=== PATIENT | male | born 1935 | race Caucasian/White ===

== ENCOUNTER 2018-04-19 07:12 | Inpatient (IN) | payer MEDICARE, OTHER ==
[2018-04-19] MEDS: NS 500 ML IV (07:45)
[2018-04-19 07:54] LABS: BASO % 0.3 % (0.0-1.0); EOS # 0.1 10^3/uL (0.0-0.50); EOS % 0.9 % (0.0-3.0); HEMATOCRIT 40.9 % (42.0-52.0); HEMOGLOBIN 14.2 g/dl (13.5-17.5); IMMATURE GRANULOCYTE % 0.6 % (0-3.0); LYMPH % 9.2 % (24.0-44.0); MEAN CORPUSCULAR HEMOGLOBIN 30.4 pg (27.0-33.0); MEAN CORPUSCULAR HGB CONC 34.7 g/dl (32.0-36.5); MEAN CORPUSCULAR VOLUME 87.6 fl (80.0-96.0); MONO % 9.6 % (0.0-5.0); NEUTROPHILS # 8.4 10^3/uL (1.8-7.7); NEUTROPHILS % 79.4 % (36.0-66.0); PLATELET COUNT, AUTOMATED 141 10^3/uL (150-450); RED BLOOD COUNT 4.67 10^6/uL (4.30-6.10); RED CELL DISTRIBUTION WIDTH 12.8 % (11.5-14.5); VENOUS BASE EXCESS -1.4 (-2.0-2.0); VENOUS HCO3 25.4 MEQ/L (23.0-27.0); VENOUS O2 SATURATION 69.9 % (60.0-80.0); VENOUS PARTIAL PRESSURE CO2 50.4 mmHg (38.0-50.0); VENOUS PARTIAL PRESSURE O2 37.7 mmHg (30.0-50.0); VENOUS STANDARD HCO3 22.7 MEQ/L; VENOUS TOTAL CO2 26.9 MEQ/L (24.0-28.0); WHITE BLOOD COUNT 10.6 10^3/uL (4.0-10.0)
[2018-04-19 07:56] LABS: INR 1.01; PROTHROMBIN TIME 13.4 SECONDS (12.4-14.5)
[2018-04-19 08:23] LABS: LACTIC ACID SEPSIS PROTOCOL 1.7 MMOL/L (0.4-2.0)
[2018-04-19 08:26] LABS: ALBUMIN 2.6 GM/DL (3.2-5.2); ALKALINE PHOSPHATASE 132 U/L (45-117); ALT/SGPT 43 U/L (12-78); ANION GAP 13 MEQ/L (8-16); AST/SGOT 38 U/L (7-37); BILIRUBIN,DIRECT 0.4 MG/DL (0.0-0.2); BILIRUBIN,TOTAL 0.9 MG/DL (0.2-1.0); BLOOD UREA NITROGEN 19 MG/DL (7-18); CALCIUM LEVEL 7.9 MG/DL (8.8-10.2); CARBON DIOXIDE LEVEL 23 MEQ/L (21-32); CHLORIDE LEVEL 107 MEQ/L (98-107); CPK CREATINE PHOSPHOKINASE 35 U/L (39-308); CREATININE FOR GFR 1.27 MG/DL (0.70-1.30); GLOMERULAR FILTRATION RATE 57.7 (>35); GLUCOSE, FASTING 136 MG/DL (70-100); POTASSIUM SERUM 4.1 MEQ/L (3.5-5.1); SODIUM LEVEL 143 MEQ/L (136-145); TOTAL PROTEIN 6.3 GM/DL (6.4-8.2); TROPONIN I 0.05 NG/ML (< 0.10)
[2018-04-19] MEDS: MOXIFLOXACIN HCL 400 MG in APPROPRIATE DILUENT 1 EA IV (08:27)
[2018-04-19 08:28] LABS: INFLUENZA A AMPLIFICATION NEGATIVE (NEGATIVE); INFLUENZA B AMPLIFICATION NEGATIVE (NEGATIVE)
[2018-04-19 08:31] LABS: CK-MB VALUE MASS < 1.0 NG/ML (<3.6); MB/CK RELATIVE INDEX 2.85 (< OR =4); NT-PRO BNP 3849 PG/ML (<450); THYROID STIMULATING HORMONE 0.885 uIU/ML (0.358-3.740)
[2018-04-19] MEDS ORDERED: ENOXAPARIN 40 MG/0.4 ML SYRINGE (J1650) SC (09:00)
[2018-04-19] MEDS ORDERED: BISACODYL 5 MG TAB PO (10:30)
[2018-04-19] MEDS ORDERED: ISOVUE-370 76% 100ML VIAL (Q9967) As Ordered (10:44)
[2018-04-19 11:17] LABS: D-DIMER QUANT > 4000.0 ng/ml (<500)
[2018-04-19] MEDS: OMEPRAZOLE 20 MG CAP PO (11:34)
[2018-04-19] MEDS: amLODIPine 5 MG TAB PO (11:34)
[2018-04-19] MEDS: LevoFLOXacin IV 750 MG in APPROPRIATE DILUENT 1 EA IV (11:34)
[2018-04-19] MEDS: ASPIRIN 81 MG ENTERIC TAB PO (11:34)
[2018-04-19] MEDS: HEPARIN SOD (PORCINE) 5000 UNITS/ML VIAL IV ×2 (11:57→18:56)
[2018-04-19] MEDS: HEPARIN DRIP 25,000 UNITS in APPROPRIATE DILUENT 1 EA IV (12:00)
[2018-04-19 12:40] LABS: ABG BASE EXCESS -1.9 (-2.0-2.0); ABG HCO3 21.1 MEQ/L (22.0-26.0); ABG PARTIAL PRESSURE CO2 31.2 mmHg (35.0-45.0); ABG PARTIAL PRESSURE O2 83.9 mmHg (75.0-100.0); ABG STANDARD HCO3 22.9 MEQ/L (22.0-26.0); ABG pH (ARTERIAL) 7.447 UNITS (7.350-7.450)
[2018-04-19] MEDS: BUDESONIDE 180MCG INHALER (PULMICORT FLEXHALER) INH ×2 (13:25→21:50)
[2018-04-19 13:49] LABS: ERYTHROCYTE SEDIMENTATION RATE 44 mm/hr (0-20)
[2018-04-19] MEDS: MONTELUKAST 10 MG TAB PO (14:56)
[2018-04-19] MEDS: IRBESARTAN 150 MG TAB PO (14:56)
[2018-04-19 15:47] LABS: CK-MB VALUE MASS 1.7 NG/ML (<3.6); CPK CREATINE PHOSPHOKINASE 31 U/L (39-308); MB/CK RELATIVE INDEX 5.48 (< OR =4)
[2018-04-19 18:28] LABS: PARTIAL THROMBOPLASTIN TIME 51.3 SECONDS (26.8-37.9)
[2018-04-19 18:43] LABS: CPK CREATINE PHOSPHOKINASE 32 U/L (39-308); MB/CK RELATIVE INDEX 6.25 (< OR =4); TROPONIN I 0.45 NG/ML (< 0.10)
[2018-04-19] MEDS: ACETAMINOPHEN TAB 650MG DOSE (2X325MG) PO (20:00)
[2018-04-20 01:28] LABS: PARTIAL THROMBOPLASTIN TIME 95.3 SECONDS (26.8-37.9)
[2018-04-20 05:00] LABS: HEMATOCRIT 35.8 % (42.0-52.0); HEMOGLOBIN 12.3 g/dl (13.5-17.5); MEAN CORPUSCULAR HEMOGLOBIN 29.9 pg (27.0-33.0); MEAN CORPUSCULAR HGB CONC 34.4 g/dl (32.0-36.5); MEAN CORPUSCULAR VOLUME 87.1 fl (80.0-96.0); PLATELET COUNT, AUTOMATED 135 10^3/uL (150-450); RED BLOOD COUNT 4.11 10^6/uL (4.30-6.10); WHITE BLOOD COUNT 7.1 10^3/uL (4.0-10.0)
[2018-04-20 05:09] LABS: ANION GAP 8 MEQ/L (8-16); BLOOD UREA NITROGEN 26 MG/DL (7-18); CALCIUM LEVEL 8.1 MG/DL (8.8-10.2); CARBON DIOXIDE LEVEL 25 MEQ/L (21-32); CHLORIDE LEVEL 109 MEQ/L (98-107); CREATININE FOR GFR 1.46 MG/DL (0.70-1.30); GLOMERULAR FILTRATION RATE 49.1 (>35); GLUCOSE, FASTING 115 MG/DL (70-100); POTASSIUM SERUM 3.9 MEQ/L (3.5-5.1); SODIUM LEVEL 142 MEQ/L (136-145)
[2018-04-20] MEDS: HEPARIN DRIP 25,000 UNITS in APPROPRIATE DILUENT 1 EA IV (06:45)
[2018-04-20 07:24] LABS: PARTIAL THROMBOPLASTIN TIME 82.8 SECONDS (26.8-37.9)
[2018-04-20] MEDS: NS 1,000 ML IV ×2 (07:36→18:34)
[2018-04-20] MEDS: OMEPRAZOLE 20 MG CAP PO (09:15)
[2018-04-20] MEDS: IRBESARTAN 150 MG TAB PO (09:15)
[2018-04-20] MEDS: MONTELUKAST 10 MG TAB PO (09:15)
[2018-04-20] MEDS: amLODIPine 5 MG TAB PO (09:16)
[2018-04-20] MEDS: BUDESONIDE 180MCG INHALER (PULMICORT FLEXHALER) INH ×2 (09:18→20:01)
[2018-04-21] MEDS: HEPARIN DRIP 25,000 UNITS in APPROPRIATE DILUENT 1 EA IV ×2 (00:25→18:16)
[2018-04-21 04:31] LABS: HEMATOCRIT 36.7 % (42.0-52.0); HEMOGLOBIN 12.4 g/dl (13.5-17.5); MEAN CORPUSCULAR HEMOGLOBIN 29.8 pg (27.0-33.0); MEAN CORPUSCULAR HGB CONC 33.8 g/dl (32.0-36.5); MEAN CORPUSCULAR VOLUME 88.2 fl (80.0-96.0); PLATELET COUNT, AUTOMATED 157 10^3/uL (150-450); RED BLOOD COUNT 4.16 10^6/uL (4.30-6.10); WHITE BLOOD COUNT 5.5 10^3/uL (4.0-10.0)
[2018-04-21 04:39] LABS: PARTIAL THROMBOPLASTIN TIME 63.4 SECONDS (26.8-37.9)
[2018-04-21 04:53] LABS: ANION GAP 9 MEQ/L (8-16); BLOOD UREA NITROGEN 25 MG/DL (7-18); CALCIUM LEVEL 7.7 MG/DL (8.8-10.2); CARBON DIOXIDE LEVEL 25 MEQ/L (21-32); CHLORIDE LEVEL 110 MEQ/L (98-107); CREATININE FOR GFR 1.42 MG/DL (0.70-1.30); GLOMERULAR FILTRATION RATE 50.7 (>35); GLUCOSE, FASTING 141 MG/DL (70-100); MAGNESIUM LEVEL 1.9 MG/DL (1.8-2.4); POTASSIUM SERUM 3.8 MEQ/L (3.5-5.1); SODIUM LEVEL 144 MEQ/L (136-145)
[2018-04-21] MEDS: HEPARIN SOD (PORCINE) 5000 UNITS/ML VIAL IV (05:36)
[2018-04-21] MEDS: NS 1,000 ML IV (07:44)
[2018-04-21] MEDS: amLODIPine 5 MG TAB PO ×2 (07:53→19:39)
[2018-04-21] MEDS: MONTELUKAST 10 MG TAB PO (07:53)
[2018-04-21] MEDS: OMEPRAZOLE 20 MG CAP PO (07:53)
[2018-04-21] MEDS: BUDESONIDE 180MCG INHALER (PULMICORT FLEXHALER) INH ×2 (09:00→19:57)
[2018-04-21] MEDS: ALTEPLASE RECOMBINANT 25 MG in NS 225 ML IV (12:00)
[2018-04-21] MEDS ORDERED: NS 1,000 ML IV (14:15)
[2018-04-21 15:21] LABS: INR 1.05; PROTHROMBIN TIME 13.8 SECONDS (12.4-14.5)
[2018-04-21 15:22] LABS: FIBRINOGEN 668 MG/DL (221-452)
[2018-04-21] MEDS: LABETALOL HCL 100 MG/20 ML VIAL IV ×2 (17:33→21:30)
[2018-04-21 18:27] LABS: HEMATOCRIT 34.1 % (42.0-52.0); HEMOGLOBIN 11.6 g/dl (13.5-17.5)
[2018-04-21] MEDS ORDERED: SODIUM CHLORIDE 0.9% INJ 10 ML SYR IV (18:30)
[2018-04-21 18:49] LABS: FIBRINOGEN 611 MG/DL (221-452)
[2018-04-21 18:49] LABS: PARTIAL THROMBOPLASTIN TIME 39.3 SECONDS (26.8-37.9)
[2018-04-21] MEDS: ACETAMINOPHEN TAB 650MG DOSE (2X325MG) PO (19:39)
[2018-04-22] MEDS: LABETALOL HCL 100 MG/20 ML VIAL IV ×2 (00:31→05:44)
[2018-04-22 00:38] LABS: HEMATOCRIT 33.1 % (42.0-52.0); HEMOGLOBIN 11.1 g/dl (13.5-17.5)
[2018-04-22 00:49] LABS: FIBRINOGEN 582 MG/DL (221-452)
[2018-04-22 00:50] LABS: PARTIAL THROMBOPLASTIN TIME 77.2 SECONDS (26.8-37.9)
[2018-04-22] MEDS: SODIUM CHLORIDE 0.9% INJ 10 ML SYR IV ×2 (05:45→19:04)
[2018-04-22 06:00] LABS: HEMATOCRIT 33.3 % (42.0-52.0); HEMOGLOBIN 11.1 g/dl (13.5-17.5); MEAN CORPUSCULAR HEMOGLOBIN 29.9 pg (27.0-33.0); MEAN CORPUSCULAR HGB CONC 33.3 g/dl (32.0-36.5); MEAN CORPUSCULAR VOLUME 89.8 fl (80.0-96.0); PLATELET COUNT, AUTOMATED 140 10^3/uL (150-450); RED BLOOD COUNT 3.71 10^6/uL (4.30-6.10); RED CELL DISTRIBUTION WIDTH 12.9 % (11.5-14.5); WHITE BLOOD COUNT 4.7 10^3/uL (4.0-10.0)
[2018-04-22 06:12] LABS: PARTIAL THROMBOPLASTIN TIME 38.7 SECONDS (26.8-37.9)
[2018-04-22 06:24] LABS: FIBRINOGEN 589 MG/DL (221-452)
[2018-04-22 06:26] LABS: ANION GAP 9 MEQ/L (8-16); BLOOD UREA NITROGEN 19 MG/DL (7-18); CALCIUM LEVEL 7.2 MG/DL (8.8-10.2); CARBON DIOXIDE LEVEL 26 MEQ/L (21-32); CHLORIDE LEVEL 112 MEQ/L (98-107); CREATININE FOR GFR 1.21 MG/DL (0.70-1.30); GLOMERULAR FILTRATION RATE > 60.0 (>35); GLUCOSE, FASTING 118 MG/DL (70-100); POTASSIUM SERUM 4.1 MEQ/L (3.5-5.1); SODIUM LEVEL 147 MEQ/L (136-145)
[2018-04-22] MEDS: BUDESONIDE 180MCG INHALER (PULMICORT FLEXHALER) INH ×2 (07:53→19:46)
[2018-04-22] MEDS: OMEPRAZOLE 20 MG CAP PO (08:48)
[2018-04-22] MEDS: MONTELUKAST 10 MG TAB PO (08:49)
[2018-04-22] MEDS: amLODIPine 5 MG TAB PO ×2 (08:49→16:44)
[2018-04-22 10:25] LABS: DRVV SCREEN 77.9 SEC
[2018-04-22 10:32] LABS: PTT LUPUS TYPE ANTICOAG SCREEN 1.8 (0-1.2)
[2018-04-22 10:51] LABS: DRVV CONFIRM 57.6 SEC; LUPUS CONFIRM RATIO 1.5
[2018-04-22] MEDS: ALTEPLASE RECOMBINANT 25 MG in NS 225 ML IV (11:36)
[2018-04-22 14:19] LABS: HEMATOCRIT 35.5 % (42.0-52.0); HEMOGLOBIN 11.9 g/dl (13.5-17.5)
[2018-04-22 14:25] LABS: FIBRINOGEN 569 MG/DL (221-452)
[2018-04-22 14:26] LABS: FIBRINOGEN 569 MG/DL (221-452)
[2018-04-22 18:41] LABS: HEMOGLOBIN 12.3 g/dl (13.5-17.5)
[2018-04-22 18:54] LABS: FIBRINOGEN 550 MG/DL (221-452)
[2018-04-22 18:55] LABS: PARTIAL THROMBOPLASTIN TIME 39.1 SECONDS (26.8-37.9)
[2018-04-22] MEDS: HEPARIN DRIP 25,000 UNITS in APPROPRIATE DILUENT 1 EA IV (19:05)
[2018-04-22] MEDS: ACETAMINOPHEN TAB 650MG DOSE (2X325MG) PO (20:04)
[2018-04-22] MEDS: METOPROLOL TART 50 MG TAB PO (23:05)
[2018-04-23 01:00] LABS: PARTIAL THROMBOPLASTIN TIME 48.3 SECONDS (26.8-37.9)
[2018-04-23 01:00] LABS: FIBRINOGEN 501 MG/DL (221-452)
[2018-04-23 01:11] LABS: HEMATOCRIT 35.8 % (42.0-52.0)
[2018-04-23] MEDS: SODIUM CHLORIDE 0.9% INJ 10 ML SYR IV ×2 (06:00→18:00)
[2018-04-23 06:34] LABS: HEMATOCRIT 33.3 % (42.0-52.0); HEMOGLOBIN 11.3 g/dl (13.5-17.5); MEAN CORPUSCULAR HEMOGLOBIN 30.3 pg (27.0-33.0); MEAN CORPUSCULAR HGB CONC 33.9 g/dl (32.0-36.5); MEAN CORPUSCULAR VOLUME 89.3 fl (80.0-96.0); PLATELET COUNT, AUTOMATED 139 10^3/uL (150-450); RED BLOOD COUNT 3.73 10^6/uL (4.30-6.10); RED CELL DISTRIBUTION WIDTH 12.8 % (11.5-14.5); WHITE BLOOD COUNT 4.6 10^3/uL (4.0-10.0)
[2018-04-23 07:12] LABS: ANION GAP 9 MEQ/L (8-16); BLOOD UREA NITROGEN 18 MG/DL (7-18); CALCIUM LEVEL 7.7 MG/DL (8.8-10.2); CARBON DIOXIDE LEVEL 26 MEQ/L (21-32); CHLORIDE LEVEL 110 MEQ/L (98-107); CREATININE FOR GFR 1.19 MG/DL (0.70-1.30); GLOMERULAR FILTRATION RATE > 60.0 (>35); GLUCOSE, FASTING 105 MG/DL (70-100); POTASSIUM SERUM 3.9 MEQ/L (3.5-5.1); PSA SCREENING 3.26 NG/ML (< 4.0); SODIUM LEVEL 145 MEQ/L (136-145)
[2018-04-23] MEDS: BUDESONIDE 180MCG INHALER (PULMICORT FLEXHALER) INH ×2 (07:25→20:04)
[2018-04-23 07:28] LABS: FIBRINOGEN 417 MG/DL (221-452)
[2018-04-23 07:28] LABS: PARTIAL THROMBOPLASTIN TIME 46.5 SECONDS (26.8-37.9)
[2018-04-23] MEDS: MONTELUKAST 10 MG TAB PO (08:03)
[2018-04-23] MEDS: amLODIPine 10 MG TAB PO (08:04)
[2018-04-23] MEDS: METOPROLOL TART 50 MG TAB PO (08:04)
[2018-04-23] MEDS: OMEPRAZOLE 20 MG CAP PO (08:04)
[2018-04-23] MEDS: ALTEPLASE RECOMBINANT 25 MG in NS 225 ML IV (09:56)
[2018-04-23] MEDS: hydroCHLOROthiazide 25 MG TAB PO (11:21)
[2018-04-23 12:13] LABS: HEMATOCRIT 34.4 % (42.0-52.0); HEMOGLOBIN 11.5 g/dl (13.5-17.5)
[2018-04-23 12:22] LABS: PARTIAL THROMBOPLASTIN TIME 72.9 SECONDS (25.4-37.6)
[2018-04-23 12:30] LABS: FIBRINOGEN 404 MG/DL (221-452)
[2018-04-23] MEDS: ACETAMINOPHEN TAB 650MG DOSE (2X325MG) PO (12:35)
[2018-04-23] MEDS: cloNIDine 0.1 MG TAB PO ×2 (17:20→18:14)
[2018-04-23 18:27] LABS: HEMATOCRIT 35.6 % (42.0-52.0); HEMOGLOBIN 11.9 g/dl (13.5-17.5)
[2018-04-23 18:55] LABS: PARTIAL THROMBOPLASTIN TIME 47.4 SECONDS (25.4-37.6)
[2018-04-23 18:55] LABS: FIBRINOGEN 414 MG/DL (221-452)
[2018-04-23] MEDS: niCARdipine IV 40 MG in APPROPRIATE DILUENT 1 EA IV (19:07)
[2018-04-26 00:08] LABS: ANCA-ATYPICAL <1:20 titer (Neg:<1:20); ANTI THROMBIN 3 ANTIGEN IMMUNO 98 % (72-124); ANTI THROMBIN 3 FUNCT ACTIVITY 99 % (75-135); ANTINUCLEAR ANTIBODIES DIRECT Negative (Negative); CARDIOLIPIN IGA ANTIBODY <9 APL U/mL (0-11); CARDIOLIPIN IGG ANTIBODY <9 GPL U/mL (0-14); CARDIOLIPIN IGM ANTIBODY <9 MPL U/mL (0-12); CYTOPLASMIC NEUTROP AB ANCA-C <1:20 titer (Neg:<1:20); HEXAGONAL PHASE PHOSPHOLIPID 10 sec (0-11); HOMOCYST(E)INE SERUM 9.4 umol/L (0.0-15.0); PERINUCLEAR AB ANCA-P <1:20 titer (Neg:<1:20); PROTEIN C ANTIGEN 62 % (60-150); PROTEIN S ANTIGEN FREE 72 % (57-157); PROTEIN S ANTIGEN TOTAL 91 % (60-150); SJOGREN'S ANTI SS-A <0.2 AI (0.0-0.9); SJOGREN'S ANTI SS-B <0.2 AI (0.0-0.9)
== END 2018-04-23 20:26 | disposition short-term general hospital (02) | DRG 175 ==
LOC: M ICU 04-21 07:30 → M ED 07:12 → M ED INP 11:56 → M ICU 13:08
PROC: 02HV33Z Insertion of Infusion Device into Superior Vena Cava, Percutaneous Approach (ICD-10-PCS; principal; 2018-04-21)
PROC: 3E03317 Introduction of Other Thrombolytic into Peripheral Vein, Percutaneous Approach (ICD-10-PCS; 2018-04-21)
DX: I26.92 Saddle embolus of pulmonary artery without acute cor pulmonale (principal); I62.01 Nontraumatic acute subdural hemorrhage; G93.41 Metabolic encephalopathy; N17.9 Acute kidney failure, unspecified; K21.9 Gastro-esophageal reflux disease without esophagitis; J44.9 Chronic obstructive pulmonary disease, unspecified; I12.9 Hypertensive chronic kidney disease with stage 1 through stage 4 chronic kidney disease, or unspecified chronic kidney disease; N18.9 Chronic kidney disease, unspecified; R55 Syncope and collapse; N40.0 Benign prostatic hyperplasia without lower urinary tract symptoms; J45.909 Unspecified asthma, uncomplicated; Z87.891 Personal history of nicotine dependence; Z79.82 Long term (current) use of aspirin; Z79.899 Other long term (current) drug therapy; I27.20 Pulmonary hypertension, unspecified

== ENCOUNTER 2018-05-12 13:01 | Outpatient (RCR) | payer MEDICARE, OTHER | END 2018-05-27 | LOC: M PT 13:01 | DX: Z51.89 Encounter for other specified aftercare (principal); I62.9 Nontraumatic intracranial hemorrhage, unspecified | CPT/HCPCS: 97110 ==

== ENCOUNTER 2018-05-29 10:10 | Outpatient (RCR) | payer MEDICARE, OTHER | END 2018-06-27 | LOC: M PT 10:10 | DX: Z51.89 Encounter for other specified aftercare (principal); I62.9 Nontraumatic intracranial hemorrhage, unspecified (principal) | CPT/HCPCS: 97110 ==

== ENCOUNTER → 2018-05-29 | Outpatient (REF) | payer MEDICARE, OTHER ==
[2018-05-29 18:41] LABS: APPEARANCE, URINE CLEAR (CLEAR); BACTERIA, URINE AUTO NEGATIVE (NEGATIVE); BILIRUBIN, URINE AUTO NEGATIVE (NEGATIVE); BLOOD, URINE BLOOD 2+ (NEGATIVE); CALCIUM OXALATE CRYSTALS SMALL; COLOR, URINE YELLOW (YELLOW); GLUCOSE, URINE (UA) AUTO NEGATIVE (NEGATIVE); KETONE, URINE AUTO NEGATIVE (NEGATIVE); LEUKOCYTE ESTERASE, URINE AUTO TRACE (NEGATIVE); NITRITE, URINE AUTO NEGATIVE (NEGATIVE); PROTEIN, URINE AUTO NEGATIVE (NEGATIVE); RBC, URINE AUTO 10 /HPF (0-3); SPECIFIC GRAVITY URINE AUTO 1.011 (1.002-1.035); SQUAMOUS EPITHELIAL CELL UR AU 0 /HPF (0-6); UROBILINOGEN, URINE AUTO 0.2 mg/dL (0.0-2.0); WBC, URINE AUTO 10 /HPF (0-3)
== END ==
LOC: M SMT 17:09
DX: R33.9 Retention of urine, unspecified (principal)
CPT/HCPCS: 81001

== ENCOUNTER 2018-06-19 19:37 | Emergency (ER) | payer MEDICARE, OTHER ==
[2018-06-19 21:05] LABS: BASO % 0.5 % (0.0-1.0); EOS # 0.2 10^3/uL (0.0-0.50); EOS % 2.8 % (0.0-3.0); HEMATOCRIT 32.6 % (42.0-52.0); HEMOGLOBIN 10.7 g/dl (13.5-17.5); IMMATURE GRANULOCYTE % 0.4 % (0-3.0); LYMPH # 0.9 10^3/uL (1.5-4.5); LYMPH % 15.8 % (24.0-44.0); MEAN CORPUSCULAR HGB CONC 32.8 g/dl (32.0-36.5); MEAN CORPUSCULAR VOLUME 94.5 fl (80.0-96.0); MONO # 0.5 10^3/uL (0.0-0.8); MONO % 8.9 % (0.0-5.0); NEUTROPHILS % 71.6 % (36.0-66.0); PLATELET COUNT, AUTOMATED 138 10^3/uL (150-450); RED BLOOD COUNT 3.45 10^6/uL (4.30-6.10); RED CELL DISTRIBUTION WIDTH 15.9 % (11.5-14.5); WHITE BLOOD COUNT 5.6 10^3/uL (4.0-10.0)
[2018-06-19 21:15] LABS: INR 1.01; PROTHROMBIN TIME 13.5 SECONDS (12.1-14.4)
[2018-06-19 21:16] LABS: PARTIAL THROMBOPLASTIN TIME 30.9 SECONDS (25.4-37.6)
[2018-06-19 21:26] LABS: ANION GAP 6 MEQ/L (8-16); BLOOD UREA NITROGEN 21 MG/DL (7-18); CALCIUM LEVEL 8.6 MG/DL (8.8-10.2); CARBON DIOXIDE LEVEL 29 MEQ/L (21-32); CHLORIDE LEVEL 108 MEQ/L (98-107); CK-MB VALUE MASS < 1.0 NG/ML (<3.6); CPK CREATINE PHOSPHOKINASE 25 U/L (39-308); CREATININE FOR GFR 1.46 MG/DL (0.70-1.30); GLOMERULAR FILTRATION RATE 49.1 (>35); GLUCOSE, FASTING 137 MG/DL (70-100); POTASSIUM SERUM 4.2 MEQ/L (3.5-5.1); SODIUM LEVEL 143 MEQ/L (136-145); TROPONIN I 0.02 NG/ML (< 0.10)
== END 2018-06-19 23:49 | disposition short-term general hospital (02) ==
LOC: M ED 19:37
DX: I62.00 Nontraumatic subdural hemorrhage, unspecified (principal); F17.200 Nicotine dependence, unspecified, uncomplicated; J44.9 Chronic obstructive pulmonary disease, unspecified; K21.9 Gastro-esophageal reflux disease without esophagitis; Z87.891 Personal history of nicotine dependence; Z86.73 Personal history of transient ischemic attack (TIA), and cerebral infarction without residual deficits
CPT/HCPCS: 70450

== ENCOUNTER 2018-07-23 14:59 | Emergency (ER) | payer MEDICARE, OTHER ==
[2018-07-23 16:18] LABS: BASO % 0.8 % (0.0-1.0); EOS # 0.3 10^3/uL (0.0-0.50); EOS % 7.1 % (0.0-3.0); HEMATOCRIT 33.8 % (42.0-52.0); HEMOGLOBIN 11.1 g/dl (13.5-17.5); IMMATURE GRANULOCYTE % 0.3 % (0-3.0); LYMPH % 26.4 % (24.0-44.0); MEAN CORPUSCULAR HEMOGLOBIN 30.4 pg (27.0-33.0); MEAN CORPUSCULAR HGB CONC 32.8 g/dl (32.0-36.5); MEAN CORPUSCULAR VOLUME 92.6 fl (80.0-96.0); MONO # 0.5 10^3/uL (0.0-0.8); MONO % 12.8 % (0.0-5.0); NEUTROPHILS # 1.9 10^3/uL (1.8-7.7); NEUTROPHILS % 52.6 % (36.0-66.0); PLATELET COUNT, AUTOMATED 160 10^3/uL (150-450); RED BLOOD COUNT 3.65 10^6/uL (4.30-6.10); WHITE BLOOD COUNT 3.7 10^3/uL (4.0-10.0)
[2018-07-23 16:58] LABS: ANION GAP 6 MEQ/L (8-16); BLOOD UREA NITROGEN 18 MG/DL (7-18); CALCIUM LEVEL 8.4 MG/DL (8.8-10.2); CARBON DIOXIDE LEVEL 28 MEQ/L (21-32); CHLORIDE LEVEL 114 MEQ/L (98-107); CK-MB VALUE MASS < 1.0 NG/ML (<3.6); CPK CREATINE PHOSPHOKINASE 83 U/L (39-308); CREATININE FOR GFR 1.42 MG/DL (0.70-1.30); GLOMERULAR FILTRATION RATE 50.7 (>35); GLUCOSE, FASTING 111 MG/DL (70-100); POTASSIUM SERUM 4.1 MEQ/L (3.5-5.1); SODIUM LEVEL 148 MEQ/L (136-145); TROPONIN I 0.15 NG/ML (< 0.10)
[2018-07-23 17:34] LABS: INR 1.04; PROTHROMBIN TIME 13.7 SECONDS (12.1-14.4)
[2018-07-23 17:35] LABS: PARTIAL THROMBOPLASTIN TIME 28.6 SECONDS (25.4-37.6)
[2018-07-23] MEDS: LABETALOL HCL 100 MG/20 ML VIAL IV ×2 (18:07→18:48)
[2018-07-23] MEDS ORDERED: LABETALOL HCL 100 MG/20 ML VIAL IV (18:42)
[2018-07-23] MEDS: LABETALOL 100 MG TAB PO (18:50)
== END 2018-07-23 19:05 | disposition short-term general hospital (02) ==
LOC: M ED 14:59
DX: S06.5X0A Traumatic subdural hemorrhage without loss of consciousness, initial encounter (principal); I62.03 Nontraumatic chronic subdural hemorrhage; I16.0 Hypertensive urgency; J44.9 Chronic obstructive pulmonary disease, unspecified; X58.XXXA Exposure to other specified factors, initial encounter; Y92.410 Unspecified street and highway as the place of occurrence of the external cause; K21.9 Gastro-esophageal reflux disease without esophagitis; N40.0 Benign prostatic hyperplasia without lower urinary tract symptoms; R56.9 Unspecified convulsions; Z87.891 Personal history of nicotine dependence; Z86.711 Personal history of pulmonary embolism; Z88.2 Allergy status to sulfonamides; Z79.899 Other long term (current) drug therapy; Z79.51 Long term (current) use of inhaled steroids
CPT/HCPCS: 70450

== ENCOUNTER → 2018-11-07 | Outpatient (REF) | payer MEDICARE, OTHER ==
[~2018-11-07] MED LIST: ACET1TAB55 PO; AMLO10TA5 PO; AMLO5TAB6 PO; ASPI1TAB PO; BUDE180INH INH; COLA100C5 PO; DIPH25CA PO; FLOM0.4C39 PO; FLUT44IN INH; HEPA10004 SC; IRBE150T12 PO; IRBE300T10 PO; MELA5TAB17 PO; METO50TA7 PO; MONT10TA2 PO; OMEP40CA2 PO; PANT40TA3 PO; SENN8.6T17 PO; ZOSY3INJ2 IV
[2018-11-07 13:56] LABS: HEMATOCRIT 32.9 % (42.0-52.0); HEMOGLOBIN 11.5 g/dl (13.5-17.5); MEAN CORPUSCULAR HEMOGLOBIN 32.1 pg (27.0-33.0); MEAN CORPUSCULAR VOLUME 91.9 fl (80.0-96.0); PLATELET COUNT, AUTOMATED 163 10^3/uL (150-450); RED BLOOD COUNT 3.58 10^6/uL (4.30-6.10); WHITE BLOOD COUNT 4.3 10^3/uL (4.0-10.0)
[2018-11-07 14:39] LABS: ALBUMIN 2.9 GM/DL (3.2-5.2); ALT/SGPT 11 U/L (12-78); BILIRUBIN,TOTAL 0.3 MG/DL (0.2-1.0); BLOOD UREA NITROGEN 19 MG/DL (7-18); CALCIUM LEVEL 8.1 MG/DL (8.8-10.2); CARBON DIOXIDE LEVEL 25 MEQ/L (21-32); CHLORIDE LEVEL 109 MEQ/L (98-107); CREATININE FOR GFR 1.22 MG/DL (0.70-1.30); GLOMERULAR FILTRATION RATE > 60.0 (>35); GLUCOSE, FASTING 149 MG/DL (70-100); POTASSIUM SERUM 4.5 MEQ/L (3.5-5.1); SODIUM LEVEL 144 MEQ/L (136-145)
== END ==
LOC: SKLAB8 08:00
PROVIDERS: ATTEND Internal Medicine
DX: I10 Essential (primary) hypertension (principal)

== ENCOUNTER → 2018-11-13 | Outpatient (REF) | payer MEDICARE, OTHER ==
[2018-11-13 08:42] LABS: HEMATOCRIT 35.9 % (42.0-52.0); HEMOGLOBIN 12.4 g/dl (13.5-17.5); MEAN CORPUSCULAR HGB CONC 34.5 g/dl (32.0-36.5); MEAN CORPUSCULAR VOLUME 89.8 fl (80.0-96.0); PLATELET COUNT, AUTOMATED 167 10^3/uL (150-450); WHITE BLOOD COUNT 5.3 10^3/uL (4.0-10.0)
[2018-11-13 09:20] LABS: ALBUMIN 3.2 GM/DL (3.2-5.2); ALT/SGPT 10 U/L (12-78); BILIRUBIN,TOTAL 0.4 MG/DL (0.2-1.0); BLOOD UREA NITROGEN 19 MG/DL (7-18); CALCIUM LEVEL 8.5 MG/DL (8.8-10.2); CARBON DIOXIDE LEVEL 27 MEQ/L (21-32); CHLORIDE LEVEL 109 MEQ/L (98-107); CREATININE FOR GFR 1.16 MG/DL (0.70-1.30); GLOMERULAR FILTRATION RATE > 60.0 (>35); GLUCOSE, FASTING 94 MG/DL (70-100); POTASSIUM SERUM 4.2 MEQ/L (3.5-5.1); SODIUM LEVEL 143 MEQ/L (136-145); TOTAL PROTEIN 6.3 GM/DL (6.4-8.2)
== END ==
LOC: SKLAB8 07:00
PROVIDERS: ATTEND Internal Medicine
DX: D64.9 Anemia, unspecified (principal)
CPT/HCPCS: 36415; 80053; 84443; 85027; G0103

== ENCOUNTER → 2019-07-25 | Outpatient (REF) | payer MEDICARE, OTHER ==
[~2019-07-25] MED LIST changes: -ASPI1TAB PO; +ASPI81TA26 PO; -DIPH25CA PO; +DIPH25CA32 PO; -MELA5TAB17 PO; +MELA5TAB31 PO
== END ==
LOC: M LAB REF 14:59
PROVIDERS: ATTEND Physician Assistant
DX: R35.0 Frequency of micturition (principal)

== ENCOUNTER 2019-09-29 13:03 | Inpatient (IN) | payer MEDICARE, OTHER ==
[~2019-09-29] VITALS: Ht 180.3 cm; Wt 81.9 kg
[~2019-09-29 13:03] MED LIST changes: -OMEP40CA2 PO; +OMEP40CA97 PO
--- NOTE | 2019-09-29 14:04 | REP ---
CT brain: 09/29/2019. Indication: Stroke. Comparison: 07/23/2018. Technique: Unenhanced axial CT images of the brain were obtained from skull base to vertex. Findings: There is no acute intracranial hemorrhage, acute cortical infarction, mass effect or hydrocephalous. Diffuse volume loss is present. Chronic-appearing right caudate head and right cerebellar lacunar infarctions are present. Patchy areas of cerebral hemisphere white matter hypoattenuation are noted most consistent with chronic small vessel disease. Intracranial atherosclerotic disease is present. Impression: No acute intracranial process. Electronically Signed by Jame Stafford DO 09/29/2019 01:55 P
--- NOTE | 2019-09-29 14:08 | REP ---
Clinical: Acute cerebrovascular accident . Comparison: 05/06/2018 . Findings: The mediastinum and cardiac silhouette are stable and within normal limits for portable technique. The lung agustin demonstrate chronic changes without acute consolidation, effusion, or pneumothorax. Skeletal structures are intact. Impression: No acute cardiopulmonary process appreciated. Electronically Signed by Derik Boone MD 09/29/2019 01:59 P
[2019-09-29 14:18] LABS: BASO % 0.6 % (0.0-1.0); EOS # 0.2 10^3/uL (0.0-0.5); EOS % 3.5 % (0.0-3.0); HEMATOCRIT 41.2 % (42.0-52.0); HEMOGLOBIN 13.6 g/dl (13.5-17.5); LYMPH # 1.1 10^3/uL (1.5-5.0); LYMPH % 21.4 % (24.0-44.0); MEAN CORPUSCULAR HEMOGLOBIN 30.4 pg (27.0-33.0); MONO # 0.5 10^3/uL (0.0-0.8); MONO % 9.8 % (0.0-5.0); NEUTROPHILS # 3.2 10^3/uL (1.5-8.5); NEUTROPHILS % 64.3 % (36.0-66.0); PLATELET COUNT, AUTOMATED 145 10^3/uL (150-450); RED BLOOD COUNT 4.48 10^6/uL (4.30-6.10); WHITE BLOOD COUNT 4.9 10^3/uL (4.0-10.0)
[2019-09-29] MEDS ORDERED: [UNRECOGNIZED DRUG - CODE] IM (14:34)
[2019-09-29] MEDS ORDERED: SENN1TAB8 PO (14:34)
[2019-09-29] MEDS ORDERED: TRAZ-252 PO (14:34)
[2019-09-29] MEDS ORDERED: NIFE60TA40 PO (14:34)
[2019-09-29] MEDS ORDERED: TOPR100T PO (14:34)
[2019-09-29] MEDS ORDERED: MONT10TA2 PO (14:34)
[2019-09-29] MEDS ORDERED: PANT40TA3 PO (14:34)
[2019-09-29] MEDS ORDERED: FLOM0.4C39 PO (14:34)
[2019-09-29 14:36] LABS: INR 1.04; PROTHROMBIN TIME 13.3 SECONDS (11.8-14.0)
[2019-09-29 14:44] LABS: BLOOD UREA NITROGEN 22 MG/DL (7-18); CALCIUM LEVEL 8.8 MG/DL (8.8-10.2); CARBON DIOXIDE LEVEL 28 MEQ/L (21-32); CHLORIDE LEVEL 110 MEQ/L (98-107); CK-MB VALUE MASS 1.5 NG/ML (<3.6); CPK CREATINE PHOSPHOKINASE 68 U/L (39-308); CREATININE FOR GFR 1.52 MG/DL (0.70-1.30); GLOMERULAR FILTRATION RATE 46.7 (>35); GLUCOSE, FASTING 102 MG/DL (70-100); MB/CK RELATIVE INDEX 2.21 (< OR =4); POTASSIUM SERUM 3.8 MEQ/L (3.5-5.1); SODIUM LEVEL 143 MEQ/L (136-145); TROPONIN I < 0.02 NG/ML (< 0.10)
[2019-09-29] MEDS ORDERED: BENA25CA4 PO (15:19)
[2019-09-29] MEDS ORDERED: MELA3TAB60 PO (15:19)
[2019-09-29] MEDS ORDERED: COLA100C5 PO (15:19)
--- NOTE | 2019-09-29 15:59 | REP ---
MRI brain: 09/29/2019. Indication: Stroke. Comparison: No previous MRI studies are available for direct comparison. Technique: Multiplanar short and long TR sequences of the brain were obtained without IV Gadolinium. Findings: Image quality is degraded by patient motion. No areas of restricted diffusion are present to suggest an acute infarction. There is no intracranial mass effect or hydrocephalous. Volume loss is present. There are a few small areas of signal loss on the gradient sequence within the right greater than left parietal regions consistent with remote blood products. Multiple areas of elevated T2 signal are present within the white matter. Chronic lacunar infarctions of the cerebelli, bilateral basal ganglia and left thalamus are present. The large intracranial flow voids are present. Vascular ectasia of the anterior circulation is noted. Impression: There is no evidence of an acute intracranial process. 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 Remote biparietal small blood products. Electronically Signed by Jame Stafford DO 09/29/2019 03:51 P
--- NOTE | 2019-09-29 16:04 | REP ---
Intracranial MRA: 09/29/2019. Indication: Stroke. Comparison: None. Technique: 3-D [id number] imaging of the intracranial circulation were performed. Findings: There is no intracranial high-grade stenosis, vessel occlusion, saccular aneurysm or AVM. The ICA, MCA and to a lesser extent the VALERIY vessels are ectatic. Impression: No high-grade stenosis or vessel occlusion. Electronically Signed by Jame Stafford DO 09/29/2019 03:55 P
[2019-09-29] MEDS ORDERED: DOCUSATE SODIUM 100 MG CAP PO PRN (16:45)
[2019-09-29] MEDS ORDERED: ACETAMINOPHEN 325 MG TAB PO PRN (16:45)
[2019-09-29] MEDS ORDERED: diphenhydrAMINE 25 MG CAP PO PRN (16:45)
[2019-09-29 17:09] LABS: ERYTHROCYTE SEDIMENTATION RATE 12 mm/hr (0-20)
--- NOTE | 2019-09-29 17:10 | HPEPDOC ---
[facility] Medical History & Physical Date of Admission Sep 29, 2019 Date of Service: Sep 29, 2019 Attending Physician: SAM ZAMORA MD History and Physical CHIEF COMPLAINT: Transient vision loss HISTORY OF PRESENT ILLNESS: 84-year-old male with past medical history of TIA, COPD, hypertension and hyperlipidemia presents from home with transient vision loss. Patient reports he was going on his regular daily walk, walk for 1.5 miles in the cold and on his way back he noticed blurry vision, which further progressed to complete loss of vision in the right eye. Upon reaching home, he reports improvement in vision but continued having blurry vision in the right eye. Patient went to his elevator constructor who did a complete eye exam after dilating both eyes and patient was advised to come to the hospital to assess for stroke. Patient called her bed only symptom at this time is blurry vision in the right eye which has persisted since his symptoms began. He denies any headache, eye pain, shortness of breath, dizziness, chest pain, nausea, vomiting, abdominal pain or diarrhea. 10 point review of system is negative except for above PAST MEDICAL HISTORY: 1. TIA. 2. COPD. 3. Hypertension. 4. Hyperlipidemia PAST SURGICAL HISTORY: 1. Tonsillectomy. SOCIAL HISTORY: Ex-smoker, quit 30 years ago, smoked 3 packs a day for 40 years Denies alcohol. Denies drug use FAMILY HISTORY: Father with diabetes mellitus ALLERGIES: Please see below. HOME MEDICATIONS: Please see below. PHYSICAL EXAMINATION: VITAL SIGNS: Please see below. GENERAL: No distress HEENT: Right eye with blurred vision, right pupil is slightly smaller than left pupil, both reactive to light NECK: Supple CARDIOVASCULAR EXAMINATION: S1, S2, no murmurs RESPIRATORY EXAMINATION: Clear to auscultation, no wheezing ABDOMINAL EXAMINATION: Soft, nontender, nondistended, positive bowel sounds EXTREMITIES: Range of motion intact SKIN: No rash NEUROLOGICAL EXAMINATION: Alert and oriented 3, no focal deficits PSYCHIATRIC EXAMINATION: Calm and cooperative LABORATORY DATA: See below. IMAGING: MRI negative for acute stroke MICROBIOLOGY: Please see below. ASSESSMENT: 84-year-old male with past medical history of TIA, COPD, hy pertension, hyperlipidemia, presents with transient visual loss in the right eye. PLAN: 1. Transient vision loss. Right eye loss of vision for about 20 minutes, subsequent blurry vision persists, had complete eye exam by elevator constructor, sent to the hospital to rule out stroke, MRI negative for acute CVA. ESR pending, will consider high-dose steroids if ESR elevated, carotid ultrasound pending, TTE pending. Possible TIA 2. Hypertension Continue home metoprolol and nifedipine 3. COPD Stable, continue montelukast 4. BPH. Continue Flomax DVT prophylaxis: Heparin subcutaneous GI per flexes: Home PPI Vital Signs Vital Signs Date Time Temp Pulse Resp B/P (MAP) Pulse Ox O2 Delivery O2 Flow Rate FiO2 09/29/19 15:49 118/73 (88) 09/29/19 15:48 76 99 09/29/19 14:33 97.9 18 09/29/19 13:04 Room Air Laboratory Data Labs 24H Laboratory Tests 2 09/29/19 13:43: Immature Granulocyte % (Auto) 0.4, Neutrophils (%) (Auto) 64.3, Lymphocytes (%) (Auto) 21.4L, Monocytes (%) (Auto) 9.8H, Eosinophils (%) (Auto) 3.5H, Basophils (%) (Auto) 0.6, Neutrophils # (Auto) 3.2, Lymphocytes # (Auto) 1.1L, Monocytes # (Auto) 0.5, Eosinophils # (Auto) 0.2, Basophils # (Auto) 0.0, Nucleated Red Blood Cells % (auto) 0.0, Prothrombin Time 13.3, Prothromb Time International Ratio 1.04, Activated Partial Thromboplast Time 29.0, Anion Gap 5L, Glomerular Filtration Rate 46.7, Calcium Level 8.8, Total Creatine Kinase 68, Creatine Kinase MB 1.5, Creatine Kinase MB Relative Index 2.21, Troponin I < 0.02 CBC/BMP Laboratory Tests 09/29/19 13:43 Home Medications Scheduled Metoprolol Succinate (Toprol Xl) 100 Mg Tab.er.24h, 100 MG PO DAILY Montelukast Sodium (Montelukast Sodium) 10 Mg Tablet, 10 MG PO QHS Nifedipine (Nifedipine ER) 60 Mg Tablet.er, 120 MG PO DAILY Pantoprazole Sodium (Pantoprazole Sodium) 40 Mg Tablet.dr, 40 MG PO DAILY Sennosides (Senna) 8.6 Mg Tablet, 17.2 MG PO QHS Tamsulosin HCl (Flomax) 0.4 Mg Capsule, 0.4 MG PO DAILY Trazodone HCl (Trazodone HCl) 50 Mg Tablet, 25 MG PO QHS Scheduled PRN Acetaminophen (Acetaminophen) 325 Mg Tab, 325 MG PO Q6H PRN for PAIN Diphenhydramine HCl (Benadryl) 25 Mg Capsule, 25 MG PO QHS PRN for SLEEP Docusate Sodium (Colace) 100 Mg Capsule, 200 MG PO DAILY PRN for CONSTIPATION Melatonin (Melatonin) 3 Mg Tablet, 3 MG PO QHS PRN for SLEEP Allergies Coded Allergies: Sulfa (Sulfonamide Antibiotics) (Verified Allergy, Unknown, 09/29/19) A-FIB/CHADSVASC A-FIB History Current/History of A-Fib/PAF?: No SAM ZAMORA MD Sep 29, 2019 17:10
--- NOTE | 2019-09-29 19:30 | REPVR ---
PROCEDURE INFORMATION: Exam: US Duplex Bilateral Extracranial Arteries Exam date and time: 09/29/2019 6:35 PM Age: 84 years old Clinical history: Visual disturbance; Additional info: Transient vision loss TECHNIQUE: Imaging protocol: Real-time Duplex ultrasound scan of the bilateral carotid and vertebral arteries combining pena scale, color Doppler and spectral waveform analysis. Bilateral exam. COMPARISON: CT Head without contrast 06/19/2018 8:13 PM FINDINGS: Right common carotid artery: Peak systolic velocity of the right common carotid artery is 85 cm/s. Right internal carotid artery: Peak systolic velocity of the right internal carotid artery is 63 cm/s. There is mild mixed plaque formation at the right carotid bulb. Right ICA/CCA ratio: Right ICA/CCA ratio is 0.8. Right external carotid artery: No stenosis in the origin. Right vertebral artery: Right vertebral artery is not visualized. Left common carotid artery: Peak systolic velocity of the left common carotid artery is 93 cm/s. Left internal carotid artery: Peak systolic velocity of the left internal carotid artery is 84 cm/s. Mild mixed plaque at the left carotid bulb. There is soft plaque formation at the proximal left ICA causing subjectively mild stenosis. Left ICA/CCA ratio: Left ICA/CCA ratio is 1.3. Left external carotid artery: No stenosis in the origin. Left vertebral artery: Left vertebral artery is not visualized. IMPRESSION: There is subjective mild stenosis involving the proximal left ICA without pathologically elevated velocity. Correlation with CTA may be considered. COMMENT: Carotid Stenosis Reference using SRU criteria: Mild: less than 50% stenosis. ICA PSV is less than 125 cm/second and plaque or intimal thickening is visible. Moderate: 50-69% stenosis. ICA PSV is 125 to 230 cm/second and plaque is visible. Severe: 70-94% stenosis. ICA PSV is more than 230 cm/second and visible plaque and lumen narrowing are seen. Near occlusion: 95-99% stenosis. ICA PSV is variable and significant plaque and luminal narrowing are seen. Occluded: 100% stenosis. No flow identified. Electronically signed by: Han Adams On 09/29/2019 19:30:16 PM
[2019-09-29 19:50] VITALS: BP 145/81
[2019-09-29] MEDS ORDERED: SENNA 8.6 MG TAB (SENOKOT) PO SCH (21:00)
[2019-09-29] MEDS ORDERED: traZODone 25MG PER 1/2 TABLET PO SCH (21:00)
[2019-09-29] MEDS ORDERED: MONTELUKAST 10 MG TAB PO SCH (21:00)
[2019-09-29] MEDS: HEPARIN SOD (PORCINE) 5000 UNITS/ML VIAL SC SCH (21:14)
[2019-09-29 21:34] LABS: MAGNESIUM LEVEL 1.9 MG/DL (1.8-2.4)
[2019-09-29 22:36] VITALS: BP 134/71
[2019-09-30 06:00] VITALS: BP 154/83
[2019-09-30 06:52] LABS: HEMATOCRIT 42.6 % (42.0-52.0); HEMOGLOBIN 14.3 g/dl (13.5-17.5); MEAN CORPUSCULAR HEMOGLOBIN 30.4 pg (27.0-33.0); MEAN CORPUSCULAR HGB CONC 33.6 g/dl (32.0-36.5); MEAN CORPUSCULAR VOLUME 90.4 fl (80.0-96.0); PLATELET COUNT, AUTOMATED 170 10^3/uL (150-450); RED BLOOD COUNT 4.71 10^6/uL (4.30-6.10); WHITE BLOOD COUNT 5.2 10^3/uL (4.0-10.0)
[2019-09-30 07:15] LABS: BILIRUBIN,TOTAL 0.5 MG/DL (0.2-1.0); CALCIUM LEVEL 8.4 MG/DL (8.8-10.2); CREATININE FOR GFR 1.52 MG/DL (0.70-1.30); GLOMERULAR FILTRATION RATE 46.7 (>35); MAGNESIUM LEVEL 2.2 MG/DL (1.8-2.4); TOTAL PROTEIN 6.6 GM/DL (6.4-8.2)
[2019-09-30 08:39] VITALS: BP 154/83
[2019-09-30] MEDS: HEPARIN SOD (PORCINE) 5000 UNITS/ML VIAL SC SCH (08:39)
[2019-09-30] MEDS ORDERED: NIFEdipine 30 MG XL TAB PO SCH (09:00)
[2019-09-30] MEDS ORDERED: METOPROLOL SUCC (TopROL XL) 100MG *XL* TAB PO SCH (09:00)
[2019-09-30] MEDS ORDERED: TAMSULOSIN 0.4 MG CAP PO SCH (09:00)
[2019-09-30] MEDS ORDERED: PANTOPRAZOLE 40MG TAB (PROTONIX) PO SCH (09:00)
[2019-09-30] MEDS ORDERED: ASPIRIN 81 MG ENTERIC TAB PO SCH (11:00)
[2019-09-30 14:00] VITALS: BP 154/84
[2019-09-30] MEDS ORDERED: ASPI81TAEC PO (14:26)
--- NOTE | 2019-09-30 17:30 | ECGEPIP ---
[facility] Test Date: 2019-09-29 Pat Name: ROSALIE VANEGAS Department: Room: - Gender: Male Hacksaw Inspector: CAMILA : 1935 Requested By: HAYDER Duff Order Number: [id number] Reading MD: Hayder Puga Measurements Intervals [place] Rate: 68 P: 74 MI: 274 QRS: -72 QRSD: 115 T: 77 QT: 435 QTc: 466 Interpretive Statements SINUS RHYTHM WITH FIRST DEGREE AV BLOCK MARKED LEFT AXIS DEVIATION INCOMPLETE RIGHT BUNDLE BRANCH BLOCK Suspected previous anterior infarct Prolonged QTc interval Electronically Signed on 09-30-2019 17:29:44 EST by Hayder Puga
--- NOTE | 2019-09-30 19:43 | DS.PDOC ---
Discharge Summary General Date of Admission Sep 29, 2019 at 18:05 Date of Discharge 09/30/2019 Attending Physician: SAM ZAMORA MD Discharge Summary PROCEDURES PERFORMED DURING STAY: None. ADMITTING DIAGNOSES: 1. Transient vision loss. DISCHARGE DIAGNOSES: 1. Transient vision loss. COMPLICATIONS/CHIEF COMPLAINT: Copd Gerd Hypertension Transient Vision Loss. HISTORY OF PRESENT ILLNESS: 84-year-old male with past medical history of COPD, TIA, GERD and hypertension was admitted for transient vision loss. He was evaluated by service girl prior to coming to the hospital, reports normal other eye exam. He is advised to come to the hospital to rule out stroke, CT and MRI negative for acute CVA. Patient reports near complete resolution of symptoms, without any complaint at this time. She possibly had TIA versus complicated migraine. Patient started on low-dose aspirin for secondary prevention, clinically and hemodynamically stable for outpatient follow-up. Patient also underwent carotid ultrasound and TTE, which were negative for acute pathology.. HOSPITAL COURSE: As above. DISCHARGE MEDICATIONS: Please see below. ALLERGIES: Please see below. PHYSICAL EXAMINATION: VITAL SIGNS: Please see below. GENERAL: No distress HEENT: Bilateral pupils equal and reactive to light NECK: Supple CARDIOVASCULAR EXAMINATION: S1, S2, no murmurs RESPIRATORY EXAMINATION: Clear to auscultation, no wheezing ABDOMINAL EXAMINATION: Soft, nontender, nondistended, positive bowel sounds EXTREMITIES: Range of motion intact SKIN: No rash NEUROLOGICAL EXAMINATION: Alert and oriented 3, no focal deficits PSYCHIATRIC EXAMINATION: Calm and cooperative LABORATORY DATA: Please see below. IMAGING: Negative for acute pathology PROGNOSIS: Fair ACTIVITY: As tolerated. DIET: Cardiac DISCHARGE PLAN: Follow with neurologist and PCP in 1-2 weeks DISPOSITION: 01 Home, Self-Care. DISCHARGE INSTRUCTIONS: 1. As above. DISCHARGE CONDITION: Stable. TIME SPT ON DISCHARGE: Greater than 34 minutes. Vital Signs/I&Os Vital Signs Date Time Temp Pulse Resp B/P (MAP) Pulse Ox O2 Delivery O2 Flow Rate FiO2 09/30/19 14:00 98.0 78 20 154/84 (107) 97 Room Air I&O- Last 24 Hours up to 6 AM 09/30/19 06:00 Intake Total 150 ml Output Total 350 ml Balance -200 ml Laboratory Data Labs 24H Laboratory Tests 2 09/30/19 06:31: Nucleated Red Blood Cells % (auto) 0.0, Anion Gap 5L, Glomerular Filtration Rate 46.7, Calcium Level 8.4L, Magnesium Level 2.2, Total Bilirubin 0.5, Aspartate Amino Transf (AST/SGOT) 14, Alanine Aminotransferase (ALT/SGPT) 22, Alkaline Phosphatase 136H, Total Protein 6.6, Albumin 3.0L, Albumin/Globulin Ratio 0.83L CBC/BMP Laboratory Tests 09/30/19 06:31 Discharge Medications Scheduled Aspirin (Aspirin EC) 81 Mg Tablet.dr, 81 MG PO DAILY Metoprolol Succinate (Toprol Xl) 100 Mg Tab.er.24h, 100 MG PO DAILY, (Reported) Montelukast Sodium (Montelukast Sodium) 10 Mg Tablet, 10 MG PO QHS, (Reported) Nifedipine (Nifedipine ER) 60 Mg Tablet.er, 120 MG PO DAILY, (Reported) Pantoprazole Sodium (Pantoprazole Sodium) 40 Mg Tablet.dr, 40 MG PO DAILY, (Reported) Sennosides (Senna) 8.6 Mg Tablet, 17.2 MG PO QHS, (Reported) Tamsulosin HCl (Flomax) 0.4 Mg Capsule, 0.4 MG PO DAILY, (Reported) Trazodone HCl (Trazodone HCl) 50 Mg Tablet, 25 MG PO QHS, (Reported) Scheduled PRN Acetaminophen (Acetaminophen) 325 Mg Tab, 325 MG PO Q6H PRN for PAIN, (Reported) Diphenhydramine HCl (Benadryl) 25 Mg Capsule, 25 MG PO QHS PRN for SLEEP, (Reported) Docusate Sodium (Colace) 100 Mg Capsule, 200 MG PO DAILY PRN for CONSTIPATION, (Reported) Melatonin (Melatonin) 3 Mg Tablet, 3 MG PO QHS PRN for SLEEP, (Reported) Allergies Coded Allergies: Sulfa (Sulfonamide Antibiotics) (Verified Allergy, Unknown, 09/29/19) SAM ZAMORA MD Sep 30, 2019 19:43
--- NOTE | 2019-10-01 07:27 | ECHO ---
DATE OF PROCEDURE: 09/30/2019 REFERRING PROVIDER: Dr. Eleazar Garrett PATIENT LOCATION: Room 4223 REASON FOR STUDY: Transient ischemic attack (TIA). 2D MEASUREMENTS: IVS - 1.2 cm LV - 4.8 cm LVPW - 1.0 cm LA - 3.5 cm Aorta - 3.4 cm IVC - not visualized. DOPPLER MEASUREMENTS: Peak velocity across the aortic valve - 1.2 meters per second Peak velocity across the LVOT - 0.84 meters per second Mitral E - 1.0, Mitral A - 0.98 with a ratio of about 1.0 Maximum tricuspid valve velocity - 2.9 meters per second 2D COMMENTS: 1. Normal left ventricular size and wall thickness but with a low normal global left ventricular systolic function. The estimated ventricular systolic inversion is 50-55%. 2. Subjectively, both the left atrium and the right atrium appeared to be mildly enlarged. Normal right ventricle. 3. The atrial septum appeared to be normal without evidence of defect or shunt. 4. Normal aortic root. 5. Trace pericardial effusion was noted, no evidence of cardiac tamponade. 6. Mildly calcified aortic valve, leaflet excursion appeared to be normal. Mildly calcified mitral annulus with normal anterior mitral valve leaflet motion. Normal tricuspid valve. The pulmonic valve and proximal pulmonary artery branches were not well visualized. 7. The inferior vena cava was not well visualized. Doppler detects probably moderate mitral regurgitation and mild tricuspid regurgitation. The calculated pulmonary artery systolic pressure varies between 35-45 mmHg. Abnormal relaxation pattern was noted across the mitral valve annulus, consistent with probably features of grade 1 left ventricular diastolic dysfunction. IMPRESSION: 1. Low normal global left ventricular systolic function. There is some features of grade 1 left ventricular diastolic dysfunction manifested by abnormal relaxation. 2. Aortic valve sclerosis without stenosis or aortic radiation. 3. Probably moderate mitral regurgitation with mitral annulus calcification. The left atrium subjectively is mildly enlarged. 4. Mild tricuspid regurgitation with probably mild to moderate pulmonary hypertension. The right atrium also appeared to be mildly enlarged. 5. Trace pericardial effusion was noted, no evidence of cardiac component. 6. Prior echocardiogram on 04/19/2018 and at that time, left ventricular systolic function appeared to be lower. The patient was tachycardic. There was a small pericardial effusion. The inferior vena cava then was dilated. That study was a poor quality echocardiogram.
== END 2019-09-30 15:25 | disposition home or self-care (01) | DRG 123 ==
LOC: M ED 13:03 → M ED INP 18:05 → M MSPAV 19:46
PROVIDERS: ADMIT Internal Medicine; ATTEND Internal Medicine
DX: H53.121 Transient visual loss, right eye (principal); J44.9 Chronic obstructive pulmonary disease, unspecified; I10 Essential (primary) hypertension; E78.5 Hyperlipidemia, unspecified; Z87.891 Personal history of nicotine dependence; N40.0 Benign prostatic hyperplasia without lower urinary tract symptoms; Z79.899 Other long term (current) drug therapy; Z88.2 Allergy status to sulfonamides; Z86.73 Personal history of transient ischemic attack (TIA), and cerebral infarction without residual deficits

== ENCOUNTER 2020-05-17 19:19 | Emergency (ER) | payer MEDICARE, OTHER ==
[~2020-05-17] VITALS: Ht 180.3 cm; Wt 79.5 kg
[~2020-05-17 19:19] MED LIST changes: -AMLO10TA5 PO; +AMLO1TAB24 PO; +AMLO1TAB25 PO; -AMLO5TAB6 PO; +ASPI81TAEC PO; +BENA25CA4 PO; -IRBE150T12 PO; +IRBE150T7 PO; -IRBE300T10 PO; +IRBE300T7 PO; +MELA3TAB7 PO; -MELA5TAB31 PO; +MELA5TAB36 PO; -MONT10TA2 PO; +MONT10TA4 PO; +NIFE60TA40 PO; +PANT40TA29 PO; -PANT40TA3 PO; +SENN-80 PO; +TOPR100T PO; +TRAZ-252 PO; +[UNRECOGNIZED DRUG - CODE] IM
--- NOTE | 2020-05-17 20:01 | REPVR ---
PROCEDURE INFORMATION: Exam: CT Head Without Contrast Exam date and time: 05/17/2020 7:35 PM Age: 85 years old Clinical indication: Pain; Headache; Additional info: Loss of vision in L eye x 3 days HX CVA TECHNIQUE: Imaging protocol: Computed tomography of the head without contrast. Radiation optimization: All CT scans at this facility use at least one of these dose optimization techniques: automated exposure control; mA and/or kV adjustment per patient size (includes targeted exams where dose is matched to clinical indication); or iterative reconstruction. Other technique: STROKE PROTOCOL was implemented. COMPARISON: 1. CT Head without contrast 09/29/2019 1:39 PM 2. [place] - MRI-Brain without Contrast 09/29/2019 2:52:31 PM FINDINGS: Brain: There is no evidence for an acute large vessel territorial infarct, intracranial hemorrhage, mass, mass effect, midline shift, or herniation. There are chronic lacunar infarcts involving the head of the right caudate nucleus and both cerebellar hemispheres, which are similar in appearance compared to the prior CT on 09/29/2019. There are non-specific foci of low attenuation in the periventricular and subcortical white matter, which are likely the sequela of chronic small vessel ischemic injury and are similar in appearance compared to the prior CT on 09/29/2019. Incidental note is made of a calcification in the left globus pallidus, which is similar in appearance compared to the prior CT on 09/29/2019. Ventricles: The ventricles are mildly to moderately dilated in proportion to the sulci, which is compatible with mild to moderate generalized cerebral volume loss that is similar in appearance compared to the prior CT on 09/29/2019. Bones/joints: Unremarkable. No acute fracture. Sinuses: There is mild mucosal thickening in the ethmoid sinuses. The sinuses were not fully imaged. Mastoid air cells: Clear. Orbits: Incidental note is made of bilateral lens implants. Vasculature: There are atherosclerotic calcifications of the intracranial portion of the vertebral arteries and internal carotid arteries. Soft tissues: Unremarkable. No soft tissue fluid collection. IMPRESSION: 1. No acute intracranial abnormality. No significant change compared to the prior CT head on 09/29/2019. 2. Chronic lacunar infarcts involving the head of the right caudate nucleus and both cerebellar hemispheres, which are similar in appearance compared to the prior CT on 09/29/2019. 3. [id number]-ok-[id number] cerebral atrophy and chronic microangiopathic changes that are similar in appearance compared to the prior CT head on 09/29/2019. ASSESSMENT: ASPECTS ([place] Stroke Program Early CT Score) is 10. Electronically signed by: Shivam Calix On 05/17/2020 20:01:25 PM
[2020-05-17 21:03] LABS: BASO % 0.8 % (0.0-1.0); EOS # 0.3 10^3/uL (0.0-0.5); EOS % 6.2 % (0.0-3.0); HEMOGLOBIN 13.1 g/dl (13.5-17.5); LYMPH # 1.4 10^3/uL (1.5-5.0); LYMPH % 26.6 % (24.0-44.0); MEAN CORPUSCULAR HEMOGLOBIN 30.3 pg (27.0-33.0); MEAN CORPUSCULAR HGB CONC 33.6 g/dl (32.0-36.5); MEAN CORPUSCULAR VOLUME 90.1 fl (80.0-96.0); MONO # 0.6 10^3/uL (0.0-0.8); MONO % 11.9 % (0.0-5.0); NEUTROPHILS # 2.9 10^3/uL (1.5-8.5); NEUTROPHILS % 54.3 % (36.0-66.0); PLATELET COUNT, AUTOMATED 168 10^3/uL (150-450); RED BLOOD COUNT 4.33 10^6/uL (4.30-6.10); WHITE BLOOD COUNT 5.3 10^3/uL (4.0-10.0)
[2020-05-17 21:20] LABS: ALBUMIN 3.1 GM/DL (3.2-5.2); ALT/SGPT 14 U/L (12-78); BILIRUBIN,DIRECT 0.1 MG/DL (0.0-0.2); BILIRUBIN,TOTAL 0.4 MG/DL (0.2-1.0); BLOOD UREA NITROGEN 21 MG/DL (7-18); CALCIUM LEVEL 8.5 MG/DL (8.8-10.2); CARBON DIOXIDE LEVEL 26 MEQ/L (21-32); CHLORIDE LEVEL 112 MEQ/L (98-107); CK-MB VALUE MASS < 1.0 NG/ML (<3.6); CPK CREATINE PHOSPHOKINASE 69 U/L (39-308); CREATININE FOR GFR 1.56 MG/DL (0.70-1.30); GLOMERULAR FILTRATION RATE 45.3 (>35); GLUCOSE, FASTING 110 MG/DL (70-100); MB/CK RELATIVE INDEX 1.45 (< OR =4); POTASSIUM SERUM 4.4 MEQ/L (3.5-5.1); SODIUM LEVEL 143 MEQ/L (136-145); TOTAL PROTEIN 6.8 GM/DL (6.4-8.2); TROPONIN I 0.08 NG/ML (< 0.10)
[2020-05-17] MEDS ORDERED: PROHANCE 279.3MG/ML 5ML VIAL As Ordered ONE (22:03)
[2020-05-17 23:30] VITALS: BP 146/73
[2020-05-17 23:34] LABS: ERYTHROCYTE SEDIMENTATION RATE 12 mm/hr (0-20)
--- NOTE | 2020-05-17 23:40 | REPVR ---
PROCEDURE INFORMATION: Exam: MR Head Without and With Contrast Exam date and time: 05/17/2020 10:16 PM Age: 85 years old Clinical indication: Visual disturbance; Additional info: Left eye vision changes; R/O stroke/aneurysm TECHNIQUE: Imaging protocol: MR of the head without and with intravenous contrast. Contrast material: PROHANCE; Contrast volume: 8 ml; Contrast route: INTRAVENOUS (IV); COMPARISON: 1. MRI ORBIT FACE NECK W/O FOLL W 05/17/2020 9:34:[address] Head without contrast 05/17/2020 7:25:17 PM 3. MRA BRAIN W/O CONTRAST 09/29/2019 2:52:31 PM FINDINGS: Brain: No acute infarct, acute intracranial hemorrhage, mass, abnormally enhancing lesion, mass effect, midline shift, or herniation is noted. There is hemosiderin staining involving the left frontal lobe and both parietal lobes related to remote hemorrhage, which can also be seen in the prior MRI brain on 09/29/2019. There are chronic lacunar infarcts involving the head of the right caudate nucleus, left thalamus, and both cerebellar hemispheres that are similar in appearance compared to the prior MRI brain on 09/29/2019. There are non-specific foci of T2 and FLAIR hyperintensity in the periventricular and subcortical white matter, which are likely the sequela of chronic small vessel ischemic injury and are similar in appearance compared to the prior MRI brain on 09/29/2019. Ventricles: The ventricles are mildly to moderately dilated in proportion to the sulci, which is compatible with mild to moderate generalized cerebral volume loss that is similar in appearance compared to the prior MRI on 09/29/2019. 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 Bones/joints: Unremarkable. Sinuses: There is mild mucosal thickening in the frontal, ethmoid, and maxillary sinuses and right sphenoid sinus. No air-fluid levels are noted in the sinuses. Mastoid air cells: The mastoid air cells are well-aerated. No mastoid effusion. Orbits: Incidental note is made of bilateral lens implants. Soft tissues: Unremarkable. Internal carotid arteries: There is fusiform dilation of the cavernous portion of the right internal carotid artery by 8 mm and fusiform dilation of the cavernous portion of the left internal carotid artery by 10 mm that is stable compared to the prior MRA head on 09/29/2019. 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 This study was not dedicated for the evaluation of the cerebral circulation. IMPRESSION: 1. No acute infarct or acute intracranial process. 2. Chronic lacunar infarcts involving the head of the right caudate nucleus, left thalamus, and both cerebellar hemispheres that are similar in appearance compared to the prior MRI brain on 09/29/2019. 3. Hemosiderin staining involving the left frontal lobe and both parietal lobes related to remote hemorrhage, which can also be seen in the prior MRI brain on 09/29/2019. No acute intracranial hemorrhage. 4. Euzt-ra-oqcrfxin cerebral atrophy and chronic microangiopathic changes that are similar in appearance compared to the prior MRI brain on 09/29/2019. 5. 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 Electronically signed by: Shivam Calix On 05/17/2020 23:40:00 PM
--- NOTE | 2020-05-17 23:40 | REPVR ---
PROCEDURE INFORMATION: Exam: MR Orbit Without and With Contrast Exam date and time: 05/17/2020 10:15 PM Age: 85 years old Clinical indication: Visual changes or disturbances; Double vision (diplopia) and other: Visual disturbance; Additional info: Left eye vision changes; R/O stroke/aneurysm TECHNIQUE: Imaging protocol: MR Orbit was performed without and with intravenous contrast. 3D rendering (Not supervised by radiologist): MIP and/or 3D reconstructed images were created by the technologist. Contrast material: PROHANCE; Contrast volume: 8 ml; Contrast route: INTRAVENOUS (IV); COMPARISON: 1. MRI-Brain W/O FOLL BY WITH 05/17/2020 9:34:[address] Head without contrast 05/17/2020 7:25:17 PM 3. MRI-Brain without Contrast 09/29/2019 2:52:31 PM 4. MRA BRAIN W/O CONTRAST 09/29/2019 2:52:[address] Head without contrast 09/29/2019 1:39:26 PM FINDINGS: Limitations: Motion artifact degrades the image quality of several sequences obtained. Orbits: The globes and orbits are intact. Incidental note is made of bilateral lens implants. There is no evidence for orbital cellulitis. No intraorbital fluid collection or mass is noted. There is no increased T2 signal or abnormal enhancement of the optic nerves to suggest optic neuritis. The extraocular muscles and lacrimal glands are normal in appearance. Sinuses: There is mild mucosal thickening in the frontal sinuses, ethmoid sinuses, maxillary sinuses, and right sphenoid sinus. No air-fluid levels are noted in the sinuses. 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 Mastoid air cells: The mastoid air cells are well-aerated. No mastoid effusion. Vasculature: There is fusiform dilation of the cavernous portion of the right internal carotid artery by 8 mm and fusiform dilation of the cavernous portion of the left internal carotid artery by 10 mm that is stable compared to the prior MRA head on 09/29/2019. 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 This study was not dedicated for the evaluation of the cerebral circulation. Soft tissues: Unremarkable. No soft tissue fluid collection. IMPRESSION: 1. Essentially normal MRI orbits without and with contrast. 2. 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 Electronically signed by: Shivam Calix On 05/17/2020 23:39:42 PM
--- NOTE | 2020-05-18 06:42 | ED PDOC ---
Post-Departure Follow-Up dr singer faxed formal report of mri natalie, orbit, face, neck for fu Kesha Collazo MD May 18, 2020 06:42
--- NOTE | 2020-05-18 10:53 | ECGEPIP ---
[facility] - ED Test Date: 2020-05-17 Pat Name: ROSALIE VANEGAS Department: Room: - Gender: Male [employer]: lexy : [id number] Requested By: RAD FLYNN Order Number: [id number] Reading MD: Nga Ackerman Measurements Intervals Phillips Rate: 69 P: 73 GA: 279 QRS: -59 QRSD: 108 T: 99 QT: 408 QTc: 439 Interpretive Statements SINUS RHYTHM WITH FIRST DEGREE AV BLOCK MARKED LEFT AXIS DEVIATION ANTEROSEPTAL MYOCARDIAL INFARCTION, OF INDETERMINATE AGE MODERATE T-WAVE ABNORMALITY, CONSIDER ISCHEMIA Electronically Signed on 05-18-2020 10:53:42 EDT by Nga Ackerman
== END 2020-05-18 03:34 | disposition home or self-care (01) ==
LOC: M ED 19:19
DX: H53.9 Unspecified visual disturbance (principal); J44.9 Chronic obstructive pulmonary disease, unspecified; K21.9 Gastro-esophageal reflux disease without esophagitis; I67.1 Cerebral aneurysm, nonruptured; Z79.899 Other long term (current) drug therapy; Z88.1 Allergy status to other antibiotic agents; Z88.2 Allergy status to sulfonamides
CPT/HCPCS: 36415; 70450; 70543; 70553; 80047; 80048; 80076; 82550; 82553; 84443; 84484; 85025; 85652; 93005; 93041; 94760; 99285; A9576; U0002

== ENCOUNTER → 2020-08-12 | Outpatient (CLI) | payer SELFPAY | LOC: M LABSMTC 13:20 | PROVIDERS: ATTEND Pediatrics | DX: Z20.828 Contact with and (suspected) exposure to other viral communicable diseases (principal) ==

== ENCOUNTER → 2020-08-19 | Outpatient (CLI) | payer SELFPAY | LOC: M LABSMTC 10:58 | PROVIDERS: ATTEND Pediatrics | DX: Z20.828 Contact with and (suspected) exposure to other viral communicable diseases (principal) ==

== ENCOUNTER → 2020-08-26 | Outpatient (CLI) | payer SELFPAY | LOC: M LABSMTC 12:13 | PROVIDERS: ATTEND Pediatrics | DX: Z20.828 Contact with and (suspected) exposure to other viral communicable diseases (principal) ==

== ENCOUNTER → 2021-09-29 | Outpatient (REF) | payer MEDICARE, OTHER ==
[~2021-09-29] MED LIST changes: +ASPI-569 PO; -ASPI81TAEC PO; +MONT10TA10 PO; -MONT10TA4 PO; +OMEP40CA4 PO; -OMEP40CA97 PO
== END ==
LOC: M WUC 19:08
PROVIDERS: ATTEND Nurse Practitioner Family
DX: J44.1 Chronic obstructive pulmonary disease with (acute) exacerbation (principal)

== ENCOUNTER 2022-04-04 21:21 | Observation (INO) | payer MEDICARE, OTHER ==
[~2022-04-04] VITALS: Ht 175.3 cm; Wt 83.7 kg
[~2022-04-04 21:21] MED LIST changes: -MONT10TA10 PO; +MONT10TA97 PO
[2022-04-04] MEDS ORDERED: ONDANSETRON 4MG/2ML VIAL IV ONE (22:25)
[2022-04-04] MEDS ORDERED: MECLIZINE 25 MG TABLET PO ONE (22:25)
[2022-04-04 22:45] LABS: HEMATOCRIT 35.2 % (42.0-52.0); HEMOGLOBIN 12.3 g/dl (13.5-17.5); MEAN CORPUSCULAR HEMOGLOBIN 30.8 pg (27.0-33.0); MEAN CORPUSCULAR HGB CONC 34.9 g/dl (32.0-36.5); PLATELET COUNT, AUTOMATED 169 10^3/uL (150-450); WHITE BLOOD COUNT 4.8 10^3/uL (4.0-10.0)
[2022-04-04 23:15] LABS: CALCIUM LEVEL 8.2 MG/DL (8.8-10.2); CREATININE FOR GFR 1.4 MG/DL (0.70-1.30); POTASSIUM SERUM 3.5 MEQ/L (3.5-5.1)
[2022-04-05 01:16] LABS: RSV AMPLIFICATION NEGATIVE (NEGATIVE)
[2022-04-05] MEDS ORDERED: ONDANSETRON 4MG/2ML VIAL IV PRN (02:45)
[2022-04-05] MEDS ORDERED: NS 1,000 ML IV SCH (02:45)
[2022-04-05] MEDS ORDERED: PANTOPRAZOLE 40MG VIAL IV SCH (02:45)
[2022-04-05] MEDS ORDERED: SENN-122 PO (03:56)
[2022-04-05] MEDS ORDERED: BUDE0.5S6 INH (03:56)
[2022-04-05] MEDS ORDERED: TORS20TA2 PO (03:56)
[2022-04-05] MEDS ORDERED: LEXA5TAB13 PO (03:56)
[2022-04-05] MEDS ORDERED: SPIR1CAP INH (03:56)
[2022-04-05] MEDS ORDERED: IPRA0.00 INH (03:56)
[2022-04-05] MEDS ORDERED: HOME MED LIST COMPLETE! XX SCH (04:00)
[2022-04-05 04:30] VITALS: BP 108/63
[2022-04-05 05:33] VITALS: BP 157/67
[2022-04-05 06:03] LABS: HEMATOCRIT 34.1 % (42.0-52.0); HEMOGLOBIN 11.5 g/dl (13.5-17.5); MEAN CORPUSCULAR HEMOGLOBIN 29.9 pg (27.0-33.0); MEAN CORPUSCULAR HGB CONC 33.7 g/dl (32.0-36.5); MEAN CORPUSCULAR VOLUME 88.8 fl (80.0-96.0); PLATELET COUNT, AUTOMATED 167 10^3/uL (150-450); RED BLOOD COUNT 3.84 10^6/uL (4.30-6.10); WHITE BLOOD COUNT 4.6 10^3/uL (4.0-10.0)
[2022-04-05] MEDS: ALBUTEROL SULFATE 2.5 MG/0.5 ML INH NEB SOLN NEB SCH ×2 (08:14→14:20)
[2022-04-05] MEDS ORDERED: MECLIZINE 25 MG TABLET PO SCH (09:00)
[2022-04-05] MEDS ORDERED: E-Z-GAS II EFFERVESCENT PACKET (SODIUM BICARB./CITRIC ACID/SIMETHICONE) As Ordered ONE (09:02)
[2022-04-05] MEDS ORDERED: E-Z-HD 98% w/w 340GM SUSP BTL As Ordered ONE (09:02)
[2022-04-05] MEDS ORDERED: E-Z-PAQUE 96% w/w SUSP 176GM BTL As Ordered ONE (09:02)
[2022-04-05] MEDS ORDERED: CARA1TAB6 PO (09:11)
[2022-04-05 09:50] LABS: HEMATOCRIT 34.1 % (42.0-52.0); HEMOGLOBIN 11.8 g/dl (13.5-17.5); MEAN CORPUSCULAR HEMOGLOBIN 30.5 pg (27.0-33.0); MEAN CORPUSCULAR HGB CONC 34.6 g/dl (32.0-36.5); MEAN CORPUSCULAR VOLUME 88.1 fl (80.0-96.0); PLATELET COUNT, AUTOMATED 165 10^3/uL (150-450); RED BLOOD COUNT 3.87 10^6/uL (4.30-6.10)
[2022-04-05 10:26] LABS: ALBUMIN 2.5 GM/DL (3.2-5.2); BILIRUBIN,TOTAL 0.4 MG/DL (0.2-1.0); CALCIUM LEVEL 8.1 MG/DL (8.8-10.2); CREATININE FOR GFR 1.47 MG/DL (0.70-1.30); GLOMERULAR FILTRATION RATE 48.2 (>35); POTASSIUM SERUM 3.4 MEQ/L (3.5-5.1); TOTAL PROTEIN 6.7 GM/DL (6.4-8.2)
[2022-04-05] MEDS ORDERED: SUCRALFATE 1 GM TAB PO SCH ×2 (12:00)
[2022-04-05] MEDS ORDERED: SELF1KIT MC (12:46)
[2022-04-05] MEDS ORDERED: MECL-86 PO (12:46)
[2022-04-05 13:15] LABS: HEMATOCRIT 35.6 % (42.0-52.0); HEMOGLOBIN 11.9 g/dl (13.5-17.5)
[2022-04-05 14:00] VITALS: BP 139/62
== END 2022-04-05 17:01 | disposition home health service (06) ==
LOC: M ED 21:21 → EDBD 21:21 → M ED INP 21:22 → CANRESERV 04-05 03:09 → ENRESERV 04-05 03:09 → M MS5PR 04-05 04:30
PROVIDERS: ADMIT Internal Medicine; ATTEND Internal Medicine
DX: H81.13 Benign paroxysmal vertigo, bilateral (principal); K92.0 Hematemesis; J01.00 Acute maxillary sinusitis, unspecified; Z86.73 Personal history of transient ischemic attack (TIA), and cerebral infarction without residual deficits; J44.9 Chronic obstructive pulmonary disease, unspecified; Z79.899 Other long term (current) drug therapy; I12.9 Hypertensive chronic kidney disease with stage 1 through stage 4 chronic kidney disease, or unspecified chronic kidney disease; N18.30 Chronic kidney disease, stage 3 unspecified; Z86.16 Personal history of COVID-19; Z88.2 Allergy status to sulfonamides; Z87.891 Personal history of nicotine dependence
CPT/HCPCS: 36415; 70450; 71045; 74246; 80048; 80053; 85014; 85018; 85027; 86850; 86900; 86901; 87428; 87631; 93005; 94640; 96374; 96375; 97116; 97161; 97165; 97530; 97535; 99285; C9113; G0378; J2405

== ENCOUNTER 2023-02-13 11:34 | Inpatient (IN) | payer MEDICARE, OTHER ==
[~2023-02-13] VITALS: Ht 180.3 cm; Wt 88.3 kg
[~2023-02-13 11:34] MED LIST changes: +BUDE0.5S6 INH; +CARA1TAB6 PO; +DIPH-435 PO; -DIPH25CA32 PO; +IPRA0.00 INH; +LEXA5TAB13 PO; +MECL-86 PO; +SELF1KIT MC; +SENN-122 PO; +SENN-186 PO; -SENN-80 PO; +SPIR1CAP INH; +TORS20TA2 PO
[2023-02-13] MEDS ORDERED: LIDOCAINE W/EPINEPHRINE 1% 20ML VIAL SC ONE (11:50)
[2023-02-13] MEDS ORDERED: BOOSTRIX VACCINE (TETANUS/DIPHTH/ACEL. PERTUSSIS) 0.5ML SYR IM.IMMUN ONE (11:50)
[2023-02-13] MEDS ORDERED: DERMABOND TOPICAL SKIN ADHESIVE TOP ONE (12:15)
[2023-02-13 12:23] LABS: HEMATOCRIT 34.1 % (42.0-52.0); HEMOGLOBIN 10.8 g/dl (13.5-17.5); MEAN CORPUSCULAR HEMOGLOBIN 30.6 pg (27.0-33.0); MEAN CORPUSCULAR HGB CONC 31.7 g/dl (32.0-36.5); MEAN CORPUSCULAR VOLUME 96.6 fl (80.0-96.0); PLATELET COUNT, AUTOMATED 197 10^3/uL (150-450); RED BLOOD COUNT 3.53 10^6/uL (4.30-6.10); WHITE BLOOD COUNT 7.3 10^3/uL (4.0-10.0)
[2023-02-13 12:47] LABS: ETHYL ALCOHOL (ETHANOL) 0.005 % (0.000-0.010)
[2023-02-13 12:48] LABS: SALICYLATE LEVEL < 3.0 MG/DL (<30)
[2023-02-13 12:49] LABS: ACETAMINOPHEN LEVEL < 2.0 UG/ML (10.0-20.0); ALBUMIN 2.8 G/DL (3.2-5.2); ALKALINE PHOSPHATASE 116 U/L (46-116); ALT/SGPT 13 U/L (7.0-40); AST/SGOT 15 U/L (<34); BILIRUBIN,DIRECT 0.2 MG/DL (<0.4); BILIRUBIN,TOTAL 0.6 MG/DL (0.3-1.2); BLOOD UREA NITROGEN 24 MG/DL (9-23); CALCIUM LEVEL 8.7 MG/DL (8.3-10.6); CARBON DIOXIDE LEVEL 25 MMOL/L (20-31); CHLORIDE LEVEL 109 MMOL/L (98-107); CPK CREATINE PHOSPHOKINASE 45 U/L (46-171); CREATININE FOR GFR 1.42 MG/DL (0.70-1.30); GLOMERULAR FILTRATION RATE 50.1 (>35); GLUCOSE, FASTING 119 MG/DL (74-106); POTASSIUM SERUM 4.3 MMOL/L (3.5-5.1); SODIUM LEVEL 141 MMOL/L (136-145); TOTAL PROTEIN 7.2 G/DL (5.7-8.2)
[2023-02-13 12:51] LABS: THYROID STIMULATING HORMONE 2.092 uIU/ML (0.55-4.78)
[2023-02-13] MEDS ORDERED: MUCI600T31 PO (15:16)
[2023-02-13] MEDS ORDERED: HOME MED LIST COMPLETE! XX SCH (15:20)
[2023-02-13 15:44] LABS: PHENCYCLIDINE URINE NEGATIVE (NEGATIVE)
[2023-02-13 15:45] LABS: AMPHETAMINES LEVEL URINE NEGATIVE (NEGATIVE); BARBITURATES URINE NEGATIVE (NEGATIVE); BENZODIAZEPINES URINE NEGATIVE (NEGATIVE); CANNABINOIDS URINE NEGATIVE (NEGATIVE); COCAINE METABOLITE URINE NEGATIVE (NEGATIVE); METHADONE URINE NEGATIVE (NEGATIVE); OPIATES URINE NEGATIVE (NEGATIVE)
[2023-02-13] MEDS ORDERED: ACETAMINOPHEN TAB 650MG DOSE (2X325MG) PO PRN (18:20)
[2023-02-13] MEDS ORDERED: IBUPROFEN 400MG TAB PO PRN (18:20)
[2023-02-13] MEDS ORDERED: MOM 30ML SUSPENSION UDC PO PRN (18:20)
[2023-02-13] MEDS ORDERED: MAALOX 30 ML SUSP *UDC PO PRN (18:20)
[2023-02-13] MEDS: BUDESONIDE 0.5 MG/2 ML INHALATION SUSPENSION INH SCH (20:00)
[2023-02-13] MEDS: MONTELUKAST 10 MG TAB PO SCH (21:58)
[2023-02-13] MEDS: SENOKOT S TAB PO SCH (21:58)
[2023-02-13] MEDS: traZODone 50 MG TAB PO SCH (21:59)
[2023-02-13 22:13] VITALS: BP 177/82
[2023-02-14 08:16] VITALS: BP 150/82
[2023-02-14] MEDS: TAMSULOSIN 0.4 MG CAP PO SCH (08:17)
[2023-02-14] MEDS: PANTOPRAZOLE 40MG TAB (PROTONIX) PO SCH (08:17)
[2023-02-14] MEDS: METOPROLOL SUCC (TopROL XL) 100MG *XL* TAB PO SCH (08:17)
[2023-02-14] MEDS: TORSEMIDE 20 MG TAB PO SCH (08:18)
[2023-02-14] MEDS: guaiFENesin ER 600 MG TAB PO SCH (08:18)
[2023-02-14] MEDS ORDERED: ESCITALOPRAM OXALATE 5MG TABLET (LEXAPRO) PO SCH (09:00)
[2023-02-14 10:23] VITALS: BP 134/80
[2023-02-14] MEDS: NIFEdipine 30MG XL TAB PO SCH (10:24)
[2023-02-14] MEDS: TIOTROPIUM INHALER/CAPSULE (SPIRIVA) INH SCH (10:25)
[2023-02-14] MEDS: BUDESONIDE 0.5 MG/2 ML INHALATION SUSPENSION INH SCH ×2 (11:02→19:33)
[2023-02-14 15:47] VITALS: BP 140/84
[2023-02-14] MEDS: traZODone 50 MG TAB PO SCH (21:25)
[2023-02-14] MEDS: SENOKOT S TAB PO SCH (21:25)
[2023-02-14] MEDS: MONTELUKAST 10 MG TAB PO SCH (21:25)
[2023-02-15 06:47] VITALS: BP 140/65
[2023-02-15] MEDS: BUDESONIDE 0.5 MG/2 ML INHALATION SUSPENSION INH SCH ×2 (08:00→19:45)
[2023-02-15] MEDS: TIOTROPIUM INHALER/CAPSULE (SPIRIVA) INH SCH (08:31)
[2023-02-15] MEDS: SERTRALINE HCL 25 MG TABLET PO SCH (08:31)
[2023-02-15] MEDS: TORSEMIDE 20 MG TAB PO SCH (08:31)
[2023-02-15] MEDS: TAMSULOSIN 0.4 MG CAP PO SCH (08:31)
[2023-02-15] MEDS: guaiFENesin ER 600 MG TAB PO SCH (08:31)
[2023-02-15] MEDS: METOPROLOL SUCC (TopROL XL) 100MG *XL* TAB PO SCH (08:32)
[2023-02-15] MEDS: PANTOPRAZOLE 40MG TAB (PROTONIX) PO SCH (08:32)
[2023-02-15] MEDS: NIFEdipine 30MG XL TAB PO SCH (08:32)
[2023-02-15] MEDS ORDERED: MELATONIN (PATIENT'S OWN MED) PO PRN (16:25)
[2023-02-15 17:36] VITALS: BP 145/65
[2023-02-15] MEDS: MONTELUKAST 10 MG TAB PO SCH (20:56)
[2023-02-15] MEDS: traZODone 50 MG TAB PO SCH (20:56)
[2023-02-15] MEDS: SENOKOT S TAB PO SCH (20:56)
[2023-02-16 05:57] VITALS: BP 142/69
[2023-02-16] MEDS: BUDESONIDE 0.5 MG/2 ML INHALATION SUSPENSION INH SCH ×2 (07:59→21:00)
[2023-02-16 08:11] VITALS: BP 125/60
[2023-02-16] MEDS: guaiFENesin ER 600 MG TAB PO SCH (08:13)
[2023-02-16] MEDS: NIFEdipine 30MG XL TAB PO SCH (08:13)
[2023-02-16] MEDS: METOPROLOL SUCC (TopROL XL) 100MG *XL* TAB PO SCH (08:13)
[2023-02-16] MEDS: SERTRALINE HCL 25 MG TABLET PO SCH (08:14)
[2023-02-16] MEDS: TIOTROPIUM INHALER/CAPSULE (SPIRIVA) INH SCH (08:14)
[2023-02-16] MEDS: PANTOPRAZOLE 40MG TAB (PROTONIX) PO SCH (08:14)
[2023-02-16] MEDS: TAMSULOSIN 0.4 MG CAP PO SCH (08:14)
[2023-02-16] MEDS: TORSEMIDE 20 MG TAB PO SCH (08:14)
[2023-02-16 18:00] VITALS: BP 135/68
[2023-02-16] MEDS: MONTELUKAST 10 MG TAB PO SCH (21:56)
[2023-02-16] MEDS: traZODone 50 MG TAB PO SCH (21:56)
[2023-02-16] MEDS: SENOKOT S TAB PO SCH (21:56)
[2023-02-17 06:47] VITALS: BP 143/65
[2023-02-17] MEDS: BUDESONIDE 0.5 MG/2 ML INHALATION SUSPENSION INH SCH ×2 (07:55→21:00)
[2023-02-17] MEDS: TAMSULOSIN 0.4 MG CAP PO SCH (09:46)
[2023-02-17] MEDS: TIOTROPIUM INHALER/CAPSULE (SPIRIVA) INH SCH (09:46)
[2023-02-17] MEDS: TORSEMIDE 20 MG TAB PO SCH (09:46)
[2023-02-17] MEDS: NIFEdipine 30MG XL TAB PO SCH (09:47)
[2023-02-17] MEDS: SERTRALINE HCL 25 MG TABLET PO SCH (09:48)
[2023-02-17] MEDS: PANTOPRAZOLE 40MG TAB (PROTONIX) PO SCH (09:49)
[2023-02-17] MEDS: METOPROLOL SUCC (TopROL XL) 100MG *XL* TAB PO SCH (09:50)
[2023-02-17] MEDS: guaiFENesin ER 600 MG TAB PO SCH (09:50)
[2023-02-17 16:32] VITALS: BP 120/70
[2023-02-17] MEDS ORDERED: NIFE1TAB52 PO (19:11)
[2023-02-17] MEDS ORDERED: SERT25TA21 PO (19:11)
[2023-02-17] MEDS: MONTELUKAST 10 MG TAB PO SCH (21:01)
[2023-02-17] MEDS: traZODone 50 MG TAB PO SCH (21:01)
[2023-02-17] MEDS: SENOKOT S TAB PO SCH (21:02)
[2023-02-18 06:37] VITALS: BP 141/65
[2023-02-18] MEDS: BUDESONIDE 0.5 MG/2 ML INHALATION SUSPENSION INH SCH (07:41)
[2023-02-18] MEDS: TIOTROPIUM INHALER/CAPSULE (SPIRIVA) INH SCH (09:03)
[2023-02-18] MEDS: TORSEMIDE 20 MG TAB PO SCH (09:05)
[2023-02-18] MEDS: SERTRALINE HCL 25 MG TABLET PO SCH (09:06)
[2023-02-18] MEDS: TAMSULOSIN 0.4 MG CAP PO SCH (09:06)
[2023-02-18] MEDS: PANTOPRAZOLE 40MG TAB (PROTONIX) PO SCH (09:06)
[2023-02-18] MEDS: guaiFENesin ER 600 MG TAB PO SCH (09:06)
[2023-02-18 09:07] VITALS: BP 135/63
[2023-02-18] MEDS: METOPROLOL SUCC (TopROL XL) 100MG *XL* TAB PO SCH (09:07)
[2023-02-18] MEDS: NIFEdipine 30MG XL TAB PO SCH (09:08)
== END 2023-02-18 15:00 | disposition home or self-care (01) | DRG 885 ==
LOC: EDBD 11:34 → M ED 11:34 → M ED INP 18:20 → M PSY 21:32
PROVIDERS: ADMIT Student in an Organized Health Care Education/Training Program; ATTEND Psychiatry & Neurology Psychiatry
DX: F32.2 Major depressive disorder, single episode, severe without psychotic features (principal); J44.9 Chronic obstructive pulmonary disease, unspecified; K21.9 Gastro-esophageal reflux disease without esophagitis; I12.9 Hypertensive chronic kidney disease with stage 1 through stage 4 chronic kidney disease, or unspecified chronic kidney disease; N18.9 Chronic kidney disease, unspecified; Z86.73 Personal history of transient ischemic attack (TIA), and cerebral infarction without residual deficits; I67.1 Cerebral aneurysm, nonruptured; I27.81 Cor pulmonale (chronic); Z86.16 Personal history of COVID-19; Z20.822 Contact with and (suspected) exposure to COVID-19; Z79.899 Other long term (current) drug therapy; Z88.2 Allergy status to sulfonamides; Z87.891 Personal history of nicotine dependence; T14.91XA Suicide attempt, initial encounter; S61.511A Laceration without foreign body of right wrist, initial encounter; W26.0XXA Contact with knife, initial encounter; Y92.009 Unspecified place in unspecified non-institutional (private) residence as the place of occurrence of the external cause

== ENCOUNTER 2023-09-28 08:20 | Inpatient (IN) | payer MEDICARE, MEDICAID ==
[~2023-09-28] VITALS: Ht 177.8 cm; Wt 81.6 kg
[~2023-09-28 08:20] MED LIST changes: +IRBE150T27 PO; -IRBE150T7 PO; +IRBE300T25 PO; -IRBE300T7 PO; +MUCI600T31 PO; +NIFE1TAB52 PO; -NIFE60TA40 PO; +NIFE60TA96 PO; +SERT25TA21 PO
[2023-09-28 09:12] LABS: BASO % 0.6 % (0.0-1.0); EOS # 0.1 10^3/uL (0.0-0.5); EOS % 2.4 % (0.0-3.0); HEMOGLOBIN 10.3 g/dl (13.5-17.5); LYMPH # 0.7 10^3/uL (1.5-5.0); MEAN CORPUSCULAR HEMOGLOBIN 27.9 pg (27.0-33.0); MEAN CORPUSCULAR HGB CONC 31.2 g/dl (32.0-36.5); MEAN CORPUSCULAR VOLUME 89.4 fl (80.0-96.0); MONO % 17.6 % (2.0-8.0); NEUTROPHILS # 3.6 10^3/uL (1.5-8.5); NEUTROPHILS % 66.2 % (36.0-66.0); PLATELET COUNT, AUTOMATED 199 10^3/uL (150-450); RED BLOOD COUNT 3.69 10^6/uL (4.30-6.10); WHITE BLOOD COUNT 5.4 10^3/uL (4.0-10.0)
[2023-09-28] MEDS ORDERED: LEXA5TAB13 (09:20)
[2023-09-28 09:28] LABS: CK-MB VALUE MASS < 1.0 NG/ML (<3.6); CPK CREATINE PHOSPHOKINASE 28 U/L (46-171); MB/CK RELATIVE INDEX 3.57 (< OR =4)
[2023-09-28 09:37] LABS: RSV AMPLIFICATION NEGATIVE (NEGATIVE)
[2023-09-28] MEDS: LIDOCAINE 2% 5ML JELLY UROJET TOP ONE (09:40)
[2023-09-28 11:36] LABS: BASO % 0.4 % (0.0-1.0); EOS # 0.2 10^3/uL (0.0-0.5); EOS % 2.8 % (0.0-3.0); HEMATOCRIT 34.6 % (42.0-52.0); HEMOGLOBIN 11.1 g/dl (13.5-17.5); LYMPH # 0.7 10^3/uL (1.5-5.0); LYMPH % 13.1 % (24.0-44.0); MEAN CORPUSCULAR HEMOGLOBIN 28.2 pg (27.0-33.0); MEAN CORPUSCULAR HGB CONC 32.1 g/dl (32.0-36.5); MONO # 0.8 10^3/uL (0.0-0.8); MONO % 15.3 % (2.0-8.0); NEUTROPHILS # 3.7 10^3/uL (1.5-8.5); NEUTROPHILS % 68.2 % (36.0-66.0); PLATELET COUNT, AUTOMATED 209 10^3/uL (150-450); RED BLOOD COUNT 3.93 10^6/uL (4.30-6.10); WHITE BLOOD COUNT 5.4 10^3/uL (4.0-10.0)
[2023-09-28 12:00] LABS: CK-MB VALUE MASS < 1.0 NG/ML (<3.6)
[2023-09-28 12:01] LABS: ETHYL ALCOHOL (ETHANOL) < 0.003 % (0.000-0.010)
[2023-09-28 12:02] LABS: ALBUMIN 2.4 G/DL (3.2-5.2); ALKALINE PHOSPHATASE 105 U/L (46-116); ALT/SGPT 14 U/L (7.0-40); AST/SGOT 15 U/L (<34); BILIRUBIN,DIRECT 0.3 MG/DL (<0.4); BILIRUBIN,TOTAL 0.7 MG/DL (0.3-1.2); BLOOD UREA NITROGEN 21 MG/DL (9-23); CARBON DIOXIDE LEVEL 25 MMOL/L (20-31); CHLORIDE LEVEL 109 MMOL/L (98-107); CREATININE FOR GFR 1.26 MG/DL (0.70-1.30); GLOMERULAR FILTRATION RATE 57.5 (>35); GLUCOSE, FASTING 120 MG/DL (74-106); POTASSIUM SERUM 3.5 MMOL/L (3.5-5.1); SALICYLATE LEVEL < 3.0 MG/DL (<30); SODIUM LEVEL 144 MMOL/L (136-145); TOTAL PROTEIN 6.4 G/DL (5.7-8.2)
[2023-09-28 12:04] LABS: THYROID STIMULATING HORMONE 1.004 uIU/ML (0.55-4.78)
[2023-09-28 12:07] LABS: CPK CREATINE PHOSPHOKINASE 31 U/L (46-171); MB/CK RELATIVE INDEX 3.22 (< OR =4)
[2023-09-28] MEDS ORDERED: MED REC IN PROGRESS XX SCH (12:10)
[2023-09-28] MEDS ORDERED: MED REC CURRENTLY UNOBTAINABLE XX SCH (13:20)
[2023-09-28] MEDS ORDERED: **NOTE PATIENT COMMENT** MISC XX SCH (14:05)
[2023-09-28] MEDS ORDERED: TORS10TA3 PO (14:34)
[2023-09-28] MEDS ORDERED: NIFE60TA96 PO (14:34)
[2023-09-28] MEDS ORDERED: LEXA5TAB13 PO (14:34)
[2023-09-28 14:44] LABS: FREE T4 1.33 NG/DL (0.89-1.76)
[2023-09-28 14:45] LABS: FOLATE > 24.0 NG/ML (>5.4); VITAMIN B12 LEVEL 561 PG/ML (211-911)
[2023-09-28] MEDS ORDERED: HOME MED LIST COMPLETE! XX SCH (14:45)
[2023-09-28] MEDS: BUDESONIDE 0.5 MG/2 ML INHALATION SUSPENSION INH SCH (20:33)
[2023-09-28 21:23] VITALS: BP 152/66; TEMP 97.7; O2SAT 91
[2023-09-28] MEDS: NITROFURANTOIN (MACROBID) 100 MG CAP PO SCH (22:56)
[2023-09-28] MEDS: MONTELUKAST 10 MG TAB PO SCH (22:56)
[2023-09-28] MEDS: SENOKOT S TAB PO SCH (22:56)
[2023-09-28] MEDS: traZODone 50 MG TAB PO SCH (22:56)
[2023-09-29 06:00] VITALS: BP 160/77; TEMP 97.7; O2SAT 96
[2023-09-29 07:59] LABS: HEMATOCRIT 33.6 % (42.0-52.0); HEMOGLOBIN 10.8 g/dl (13.5-17.5); MEAN CORPUSCULAR HEMOGLOBIN 28.6 pg (27.0-33.0); MEAN CORPUSCULAR HGB CONC 32.1 g/dl (32.0-36.5); MEAN CORPUSCULAR VOLUME 88.9 fl (80.0-96.0); PLATELET COUNT, AUTOMATED 207 10^3/uL (150-450); RED BLOOD COUNT 3.78 10^6/uL (4.30-6.10); WHITE BLOOD COUNT 5.7 10^3/uL (4.0-10.0)
[2023-09-29 08:30] LABS: ALBUMIN 2.4 G/DL (3.2-5.2); BILIRUBIN,TOTAL 0.9 MG/DL (0.3-1.2); CALCIUM LEVEL 8.1 MG/DL (8.3-10.6); CREATININE FOR GFR 1.31 MG/DL (0.70-1.30); POTASSIUM SERUM 3.9 MMOL/L (3.5-5.1); TOTAL PROTEIN 6.3 G/DL (5.7-8.2)
[2023-09-29] MEDS: METOPROLOL SUCC (TopROL XL) 100MG *XL* TAB PO SCH (08:43)
[2023-09-29] MEDS: TAMSULOSIN 0.4 MG CAP PO SCH (08:43)
[2023-09-29] MEDS: PANTOPRAZOLE 40MG TAB (PROTONIX) PO SCH (08:44)
[2023-09-29] MEDS: ESCITALOPRAM OXALATE 5MG TABLET (LEXAPRO) PO SCH (08:44)
[2023-09-29] MEDS: TORSEMIDE 10 MG TABLET PO SCH (08:44)
[2023-09-29] MEDS: TIOTROPIUM INHALER/CAPSULE (SPIRIVA) INH SCH (08:47)
[2023-09-29 20:07] VITALS: BP 142/83; TEMP 97.5; O2SAT 94
[2023-09-29] MEDS: RAMELTEON 8 MG TAB (ROZEREM) PO SCH (21:14)
[2023-09-30 04:32] VITALS: BP 145/91; TEMP 97.9; O2SAT 91
[2023-09-30 13:52] VITALS: BP 161/74; TEMP 97.7; O2SAT 96
[2023-09-30 20:07] VITALS: BP 162/84; TEMP 97.9; O2SAT 92
[2023-10-01 04:12] VITALS: BP 160/85; TEMP 97.9; O2SAT 93
[2023-10-01 09:00] VITALS: BP_SYST 143; BP_SYST 153; BP_DIAS 81; TEMP 97.5; O2SAT 95
[2023-10-01 14:00] VITALS: BP 154/80; TEMP 97.3; O2SAT 94
[2023-10-02 06:33] VITALS: BP 166/88; TEMP 98.1; O2SAT 96
[2023-10-02] MEDS: BUDESONIDE 0.25 MG/2 ML INHALATION SUSPENSION INH SCH (20:19)
[2023-10-03 06:34] VITALS: BP 152/86; TEMP 97.9; O2SAT 96
[2023-10-04 06:22] VITALS: BP 133/68; TEMP 97.9; O2SAT 96
[2023-10-05 06:09] VITALS: BP 134/76; TEMP 98.6; O2SAT 96
[2023-10-05 21:33] VITALS: TEMP 99.9; O2SAT 96
[2023-10-05 21:39] VITALS: BP 92/60
[2023-10-06 09:56] VITALS: BP 110/80; TEMP 98.1; O2SAT 98
[2023-10-06] MEDS: RAMELTEON 8 MG TAB (ROZEREM) PO SCH (18:39)
[2023-10-06] MEDS: traZODone 50 MG TAB PO SCH (18:39)
[2023-10-07 06:53] VITALS: BP 137/75; TEMP 97.7; O2SAT 96
[2023-10-07] MEDS: RAMELTEON 8 MG TAB (ROZEREM) PO SCH (21:23)
[2023-10-08 06:35] VITALS: BP 139/72; TEMP 98.4; O2SAT 90
[2023-10-09 06:25] VITALS: BP 162/86; TEMP 98.2; O2SAT 92
[2023-10-11 05:30] VITALS: BP 149/86; TEMP 98.4; O2SAT 91
[2023-10-12 06:00] VITALS: BP 145/86; TEMP 97.9; O2SAT 93
[2023-10-12] MEDS: traZODone 50 MG TAB PO SCH (20:42)
[2023-10-13 08:09] VITALS: BP 129/65; TEMP 97.9; O2SAT 95
[2023-10-14 07:00] VITALS: BP 170/79; TEMP 98.1; O2SAT 93
[2023-10-14] MEDS ORDERED: IPRATROPIUM 0.5MG/ALBUTEROL 2.5MG INH SOL UD 3ML (DUONEB) NEB PRN (08:10)
[2023-10-15 06:49] VITALS: BP 166/77; TEMP 97.5; O2SAT 92
[2023-10-16] MEDS: ACETAMINOPHEN TAB 650MG DOSE (2X325MG) PO PRN (00:19)
[2023-10-16 05:40] VITALS: BP 171/85; TEMP 97.3; O2SAT 100
[2023-10-17 05:50] VITALS: BP 165/85; TEMP 97.5; O2SAT 96
[2023-10-18 06:25] VITALS: BP 164/85; TEMP 97.5; O2SAT 91
[2023-10-20 06:00] VITALS: BP 146/66; TEMP 97.9; O2SAT 96
[2023-10-22 20:24] VITALS: BP 118/79; TEMP 98.4; O2SAT 96
[2023-10-23 06:28] VITALS: BP 108/62; TEMP 97.7; O2SAT 97
[2023-10-24 06:29] VITALS: BP 144/71; TEMP 97.3; O2SAT 96
[2023-10-25 06:02] VITALS: BP 147/76; TEMP 97.3; O2SAT 96
[2023-10-26 06:00] VITALS: BP 150/73; TEMP 97.5; O2SAT 95
[2023-10-27 06:00] VITALS: BP 151/72; TEMP 97.9; O2SAT 96
[2023-10-28 06:00] VITALS: BP 145/71; TEMP 97.9; O2SAT 97
[2023-10-29 05:55] VITALS: BP 125/48; TEMP 97.2; O2SAT 96
[2023-10-30 05:33] VITALS: BP 157/76; TEMP 96.9; O2SAT 96
[2023-10-31 06:44] VITALS: BP 151/73; TEMP 97.7; O2SAT 96
[2023-11-01 06:03] VITALS: BP 144/63; TEMP 97.7; O2SAT 96
[2023-11-02 06:00] VITALS: BP 136/60; TEMP 97.2; O2SAT 96
[2023-11-03 06:00] VITALS: BP 145/63; TEMP 97.5; O2SAT 97
[2023-11-03] MEDS: ENOXAPARIN 40MG/0.4ML SYRINGE (J1650 PER 10MG) SC SCH (20:46)
[2023-11-04 06:00] VITALS: BP 132/60; TEMP 97; O2SAT 96
[2023-11-04 08:20] VITALS: BP 143/61
[2023-11-05 06:00] VITALS: BP 145/63; TEMP 97.7; O2SAT 97
[2023-11-06 06:00] VITALS: BP 110/62; TEMP 98.8; O2SAT 96
[2023-11-06 14:00] VITALS: BP 132/64; TEMP 98; O2SAT 97
[2023-11-06 23:40] VITALS: BP 149/64; TEMP 98.1; O2SAT 94
[2023-11-06 23:43] VITALS: BP 149/64; TEMP 98.1; O2SAT 95
[2023-11-07 06:00] VITALS: BP 171/72; TEMP 97.5; O2SAT 96
[2023-11-09 05:56] VITALS: BP 138/65; TEMP 97.9; O2SAT 96
[2023-11-10 06:27] VITALS: BP 138/59; TEMP 97.9; O2SAT 96
[2023-11-11 06:44] VITALS: BP 137/67; TEMP 97.9; O2SAT 96
[2023-11-12 06:14] VITALS: BP 152/64; TEMP 97.7; O2SAT 96
[2023-11-13 05:05] VITALS: BP 146/62; TEMP 98.2; O2SAT 95
[2023-11-15 06:27] VITALS: BP 179/79; TEMP 97.7; O2SAT 96
[2023-11-16 06:37] VITALS: BP 151/75; TEMP 97.6; O2SAT 95
[2023-11-17 06:41] VITALS: BP 179/72; TEMP 98.6; O2SAT 97
[2023-11-18 06:24] VITALS: BP_SYST 152; BP_SYST 154; BP_DIAS 60; BP_DIAS 61; TEMP 97.3; O2SAT 98; O2SAT 99
[2023-11-19 06:47] VITALS: BP 182/82; TEMP 97.6; O2SAT 93
[2023-11-20 05:34] VITALS: BP 163/69; TEMP 97.7; O2SAT 91
[2023-11-20 08:36] VITALS: BP 132/60
[2023-11-21 06:53] VITALS: BP 166/72; TEMP 98; O2SAT 97
[2023-11-22 06:59] VITALS: BP 124/67; TEMP 97.2; O2SAT 97
[2023-11-23 06:00] VITALS: BP 148/65; TEMP 97.7; O2SAT 98
[2023-11-24 06:00] VITALS: BP 136/68; TEMP 97.5; O2SAT 98
[2023-11-24 08:37] VITALS: BP 146/51
[2023-11-25 06:00] VITALS: BP 129/63; TEMP 97.1; O2SAT 96
[2023-11-25 09:09] VITALS: BP 155/75
[2023-11-26 08:00] VITALS: BP 140/72; TEMP 97.7
[2023-11-27 06:00] VITALS: BP 153/66; TEMP 97.2; O2SAT 97
[2023-11-28 06:14] VITALS: BP 153/76; TEMP 97.9; O2SAT 98
[2023-11-29] VITALS (8 sets, daily range): BP systolic 174–182; BP diastolic 60–80; TEMP 97.5–98.1; O2SAT 93–99
[2023-11-29] MEDS ORDERED: NITROGLYCERIN 0.4MG SUBL TABLET SL PRN (17:35)
[2023-11-29] MEDS ORDERED: ISOVUE-370 76% 100ML VIAL As Ordered ONE (17:43)
[2023-11-29 17:59] LABS: HEMATOCRIT 34.8 % (42.0-52.0); HEMOGLOBIN 10.8 g/dl (13.5-17.5); MEAN CORPUSCULAR HEMOGLOBIN 29.6 pg (27.0-33.0); MEAN CORPUSCULAR VOLUME 95.3 fl (80.0-96.0); PLATELET COUNT, AUTOMATED 159 10^3/uL (150-450); RED BLOOD COUNT 3.65 10^6/uL (4.30-6.10)
[2023-11-29 18:11] LABS: ALBUMIN 2.7 G/DL (3.2-5.2); BILIRUBIN,TOTAL 0.5 MG/DL (0.3-1.2); CALCIUM LEVEL 8.4 MG/DL (8.3-10.6); CREATININE FOR GFR 1.4 MG/DL (0.70-1.30); GLOMERULAR FILTRATION RATE 50.9 (>35); POTASSIUM SERUM 3.9 MMOL/L (3.5-5.1); TOTAL PROTEIN 6.5 G/DL (5.7-8.2)
[2023-11-29] MEDS: LR 1,000 ML IV ONE (18:36)
[2023-11-29] MEDS: LR 1,000 ML IV SCH (19:44)
[2023-11-29] MEDS: APIXABAN 5 MG TAB (ELIQUIS) PO SCH (21:13)
[2023-11-29] MEDS: **hydrALAZINE HCL** 25 MG TAB PO SCH (21:14)
[2023-11-30] VITALS (20 sets, daily range): BP systolic 150–184; BP diastolic 66–78; TEMP 97.6–98.7; O2SAT 91–98
[2023-11-30 06:34] LABS: HEMATOCRIT 32.6 % (42.0-52.0); HEMOGLOBIN 10.6 g/dl (13.5-17.5); MEAN CORPUSCULAR HGB CONC 32.5 g/dl (32.0-36.5); MEAN CORPUSCULAR VOLUME 92.4 fl (80.0-96.0); PLATELET COUNT, AUTOMATED 140 10^3/uL (150-450); RED BLOOD COUNT 3.53 10^6/uL (4.30-6.10); WHITE BLOOD COUNT 2.5 10^3/uL (4.0-10.0)
[2023-11-30 06:58] LABS: CALCIUM LEVEL 8.4 MG/DL (8.3-10.6); CREATININE FOR GFR 1.25 MG/DL (0.70-1.30); MAGNESIUM LEVEL 1.9 MG/DL (1.8-2.4); POTASSIUM SERUM 3.7 MMOL/L (3.5-5.1)
[2023-11-30] MEDS: hydrALAZINE 20MG/ML 1ML VIAL IV ONE (08:28)
[2023-11-30] MEDS: **hydrALAZINE** 50 MG TAB PO SCH (14:44)
[2023-12-01] VITALS (7 sets, daily range): BP systolic 111–166; BP diastolic 64–88; TEMP 97.5–98.7; O2SAT 96–98
[2023-12-01 07:25] LABS: BASO % 0.5 % (0.0-1.0); EOS # 0.1 10^3/uL (0.0-0.5); HEMATOCRIT 34.8 % (42.0-52.0); HEMOGLOBIN 11.3 g/dl (13.5-17.5); LYMPH # 0.8 10^3/uL (1.5-5.0); LYMPH % 18.9 % (24.0-44.0); MEAN CORPUSCULAR HEMOGLOBIN 29.7 pg (27.0-33.0); MEAN CORPUSCULAR HGB CONC 32.5 g/dl (32.0-36.5); MEAN CORPUSCULAR VOLUME 91.6 fl (80.0-96.0); MONO # 0.6 10^3/uL (0.0-0.8); MONO % 14.1 % (2.0-8.0); NEUTROPHILS # 2.6 10^3/uL (1.5-8.5); NEUTROPHILS % 64.2 % (36.0-66.0); PLATELET COUNT, AUTOMATED 159 10^3/uL (150-450)
[2023-12-01 07:55] LABS: CALCIUM LEVEL 8.4 MG/DL (8.3-10.6); CREATININE FOR GFR 1.25 MG/DL (0.70-1.30)
[2023-12-01] MEDS: TORSEMIDE 10 MG TABLET PO SCH (09:40)
[2023-12-01] MEDS: ENOXAPARIN 40MG/0.4ML SYRINGE (J1650 PER 10MG) SC SCH (09:40)
[2023-12-01] MEDS: amLODIPine 5 MG TAB PO SCH (09:40)
[2023-12-01] MEDS: HALOPERIDOL 5MG/ML 1ML VIAL IM PRN (21:08)
[2023-12-02] VITALS: BP 159/72; TEMP 97.7; O2SAT 96
[2023-12-02 04:00] VITALS: BP 175/80; TEMP 98.5; O2SAT 96
[2023-12-02 07:31] VITALS: BP 151/65; TEMP 97.5; O2SAT 96
[2023-12-02 10:09] LABS: CALCIUM LEVEL 8.2 MG/DL (8.3-10.6); CREATININE FOR GFR 1.37 MG/DL (0.70-1.30); GLOMERULAR FILTRATION RATE 52.2 (>35); POTASSIUM SERUM 4.1 MMOL/L (3.5-5.1)
[2023-12-02 10:48] VITALS: BP 167/82
[2023-12-02 14:09] VITALS: BP 152/102
[2023-12-02 19:57] VITALS: BP 164/61; TEMP 97.9; O2SAT 95
[2023-12-03 06:15] VITALS: BP 160/64; TEMP 97.9; O2SAT 96
[2023-12-03 06:35] LABS: HEMATOCRIT 32.6 % (42.0-52.0); HEMOGLOBIN 10.3 g/dl (13.5-17.5); MEAN CORPUSCULAR HEMOGLOBIN 29.9 pg (27.0-33.0); MEAN CORPUSCULAR HGB CONC 31.6 g/dl (32.0-36.5); MEAN CORPUSCULAR VOLUME 94.8 fl (80.0-96.0); PLATELET COUNT, AUTOMATED 142 10^3/uL (150-450); RED BLOOD COUNT 3.44 10^6/uL (4.30-6.10); WHITE BLOOD COUNT 3.2 10^3/uL (4.0-10.0)
[2023-12-03 08:20] LABS: CALCIUM LEVEL 8.1 MG/DL (8.3-10.6); CREATININE FOR GFR 1.33 MG/DL (0.70-1.30); POTASSIUM SERUM 4.3 MMOL/L (3.5-5.1)
[2023-12-03 13:48] VITALS: BP 160/62; TEMP 97.5; O2SAT 99
[2023-12-03 22:00] VITALS: BP 160/60; TEMP 97.4; O2SAT 99
[2023-12-04 05:25] VITALS: BP 132/60; TEMP 98.4; O2SAT 96
[2023-12-04 09:20] LABS: HEMATOCRIT 38.5 % (42.0-52.0); HEMOGLOBIN 12.1 g/dl (13.5-17.5); MEAN CORPUSCULAR HEMOGLOBIN 29.9 pg (27.0-33.0); MEAN CORPUSCULAR HGB CONC 31.4 g/dl (32.0-36.5); MEAN CORPUSCULAR VOLUME 95.1 fl (80.0-96.0); PLATELET COUNT, AUTOMATED 201 10^3/uL (150-450); RED BLOOD COUNT 4.05 10^6/uL (4.30-6.10); WHITE BLOOD COUNT 4.4 10^3/uL (4.0-10.0)
[2023-12-04 09:45] LABS: CALCIUM LEVEL 8.7 MG/DL (8.3-10.6); CREATININE FOR GFR 1.38 MG/DL (0.70-1.30); GLOMERULAR FILTRATION RATE 51.8 (>35); POTASSIUM SERUM 3.9 MMOL/L (3.5-5.1)
[2023-12-04 16:33] VITALS: BP 159/59; TEMP 97.7
[2023-12-04 17:12] VITALS: O2SAT 96
[2023-12-05 05:21] VITALS: BP 159/61; TEMP 97.5; O2SAT 97
[2023-12-05 14:25] VITALS: BP 111/65; TEMP 97.5; O2SAT 96
[2023-12-05 19:26] VITALS: BP 119/76; TEMP 97.9; O2SAT 98
[2023-12-06 06:22] VITALS: BP 132/73; TEMP 97.9; O2SAT 96
[2023-12-06 07:00] LABS: HEMATOCRIT 30.5 % (42.0-52.0); MEAN CORPUSCULAR HGB CONC 32.1 g/dl (32.0-36.5); MEAN CORPUSCULAR VOLUME 93.3 fl (80.0-96.0); PLATELET COUNT, AUTOMATED 150 10^3/uL (150-450); RED BLOOD COUNT 3.27 10^6/uL (4.30-6.10)
[2023-12-06 07:01] LABS: HEMOGLOBIN 9.8 g/dl (13.5-17.5)
[2023-12-06 14:00] VITALS: BP 135/74; TEMP 97.5; O2SAT 98
[2023-12-07 06:00] VITALS: BP 150/76; TEMP 98.1; O2SAT 98
[2023-12-08 05:49] VITALS: BP 126/71; TEMP 98.8; O2SAT 96
[2023-12-09 05:48] VITALS: BP 139/65; TEMP 98.1; O2SAT 96
[2023-12-09 06:24] LABS: HEMATOCRIT 31.2 % (42.0-52.0); HEMOGLOBIN 9.8 g/dl (13.5-17.5); MEAN CORPUSCULAR HEMOGLOBIN 29.6 pg (27.0-33.0); MEAN CORPUSCULAR HGB CONC 31.4 g/dl (32.0-36.5); MEAN CORPUSCULAR VOLUME 94.3 fl (80.0-96.0); PLATELET COUNT, AUTOMATED 145 10^3/uL (150-450); RED BLOOD COUNT 3.31 10^6/uL (4.30-6.10); WHITE BLOOD COUNT 2.2 10^3/uL (4.0-10.0)
[2023-12-09 14:28] VITALS: BP 137/55
[2023-12-09 20:02] VITALS: BP 150/64; TEMP 97.1; O2SAT 96
[2023-12-09 22:00] VITALS: BP 150/64; TEMP 97.1; O2SAT 96
[2023-12-10 06:17] VITALS: BP 137/66; TEMP 97.7; O2SAT 96
[2023-12-11 06:00] VITALS: BP 140/67; TEMP 97.6; O2SAT 99
[2023-12-12 06:00] VITALS: BP 143/68; TEMP 97.3; O2SAT 95
[2023-12-12 06:36] LABS: HEMATOCRIT 30.7 % (42.0-52.0); HEMOGLOBIN 9.9 g/dl (13.5-17.5); MEAN CORPUSCULAR HEMOGLOBIN 30.1 pg (27.0-33.0); MEAN CORPUSCULAR HGB CONC 32.2 g/dl (32.0-36.5); MEAN CORPUSCULAR VOLUME 93.3 fl (80.0-96.0); PLATELET COUNT, AUTOMATED 145 10^3/uL (150-450); RED BLOOD COUNT 3.29 10^6/uL (4.30-6.10); WHITE BLOOD COUNT 2.4 10^3/uL (4.0-10.0)
[2023-12-12 14:14] VITALS: BP 140/60
[2023-12-12 19:59] VITALS: BP 115/85; TEMP 97.7; O2SAT 96
[2023-12-13 10:15] VITALS: BP 135/65
[2023-12-14 04:00] VITALS: BP 124/60; TEMP 98.4; O2SAT 66; O2SAT 98
[2023-12-15 05:54] VITALS: BP 149/64; TEMP 97.7; O2SAT 98
[2023-12-16 06:00] VITALS: BP 108/72; TEMP 98.6; O2SAT 96
[2023-12-17 05:48] VITALS: BP 147/72; TEMP 98.6; O2SAT 95
[2023-12-18 05:21] VITALS: BP 158/70; TEMP 98.6; O2SAT 99
[2023-12-18 16:36] VITALS: BP 135/71; TEMP 97.7
[2023-12-19 06:00] VITALS: BP 145/71; TEMP 97.9; O2SAT 97
[2023-12-20 20:57] VITALS: BP 135/69; TEMP 97.7; O2SAT 97
[2023-12-21 05:39] VITALS: BP 136/47; TEMP 98.2
[2023-12-21 21:13] VITALS: BP 137/80; TEMP 97.9
[2023-12-22 05:55] VITALS: BP 153/84
[2023-12-23 06:00] VITALS: BP 131/55; TEMP 97.9; O2SAT 98
[2023-12-23 09:21] VITALS: BP 124/56
[2023-12-23 19:55] VITALS: BP 94/66
[2023-12-23 20:32] VITALS: BP 141/66
[2023-12-24 05:30] VITALS: BP 142/64; TEMP 97.9; O2SAT 94
[2023-12-25 06:00] VITALS: BP 137/65; TEMP 97.7; O2SAT 95
[2023-12-25 20:52] VITALS: BP 137/66; TEMP 97.9; O2SAT 96
[2023-12-26 05:29] VITALS: BP 158/69; TEMP 98.1; O2SAT 95
[2023-12-26 08:20] VITALS: BP 147/58
[2023-12-26 13:54] VITALS: BP 145/57
[2023-12-26] MEDS: SENNA 8.6 MG TAB (SENOKOT) PO PRN (13:57)
[2023-12-27 06:44] VITALS: BP 132/59; TEMP 97.9; O2SAT 96
[2023-12-27 09:13] VITALS: BP 102/47
[2023-12-27 20:03] VITALS: BP 150/69
[2023-12-28 05:56] VITALS: BP 132/61; TEMP 97.7; O2SAT 96
[2023-12-28 09:00] VITALS: BP 142/92; TEMP 97.2; O2SAT 98
[2023-12-29 05:23] VITALS: BP 141/64; TEMP 98.7; O2SAT 96
[2023-12-29 13:00] VITALS: BP 117/59
[2023-12-30 05:30] VITALS: BP 146/74; TEMP 98.1; O2SAT 96
[2023-12-31 05:55] VITALS: BP 138/61; TEMP 97.9; O2SAT 94
[2024-01-01 06:37] VITALS: BP 145/81; TEMP 98.1; O2SAT 93
[2024-01-01 20:03] VITALS: BP 146/60
[2024-01-02 06:31] VITALS: BP 143/66; TEMP 97.9; O2SAT 96
[2024-01-02 09:08] VITALS: BP 104/52
[2024-01-03 06:11] VITALS: BP 132/53; TEMP 98.1; O2SAT 94
[2024-01-04 06:00] VITALS: BP 128/67; TEMP 98.4; O2SAT 94
[2024-01-05 05:32] VITALS: BP 143/64; TEMP 98.1; O2SAT 96
[2024-01-05 13:36] VITALS: BP 131/55
[2024-01-06 05:43] VITALS: BP 157/68; TEMP 98.1; O2SAT 97
[2024-01-06] MEDS: prednisoLONE ACET 1% OPHTH SUSP 5ML OD SCH (13:00)
[2024-01-07 06:00] VITALS: BP 134/60; TEMP 97.5; O2SAT 95
[2024-01-08 06:00] VITALS: BP 136/75; TEMP 97.9; O2SAT 95
[2024-01-08 21:15] VITALS: BP 104/52; TEMP 97.7; O2SAT 96
[2024-01-09 06:27] VITALS: BP 150/89; TEMP 97.6
[2024-01-10 06:42] VITALS: BP 145/66; TEMP 97.9; O2SAT 96
[2024-01-11 06:23] VITALS: BP 140/64; TEMP 98.1; O2SAT 96
[2024-01-14 05:29] VITALS: BP 145/65; TEMP 98.4; O2SAT 95
[2024-01-15 06:01] VITALS: BP 141/64; TEMP 98.2; O2SAT 94
[2024-01-15 08:58] VITALS: BP 124/53
[2024-01-15 14:03] VITALS: BP 128/59
[2024-01-15 20:32] VITALS: BP 143/62
[2024-01-16 06:30] VITALS: BP 136/61; TEMP 97.9; O2SAT 95
[2024-01-17 05:38] VITALS: BP 134/57; TEMP 98.2
[2024-01-17 14:19] VITALS: BP 124/54
[2024-01-18 06:00] VITALS: BP 136/59; TEMP 97.9; O2SAT 96
[2024-01-18 09:35] LABS: BASO % 0.6 % (0.0-1.0); EOS # 0.2 10^3/uL (0.0-0.5); EOS % 4.8 % (0.0-3.0); HEMATOCRIT 33.6 % (42.0-52.0); HEMOGLOBIN 10.7 g/dl (13.5-17.5); LYMPH # 0.8 10^3/uL (1.5-5.0); LYMPH % 25.2 % (24.0-44.0); MEAN CORPUSCULAR HEMOGLOBIN 30.1 pg (27.0-33.0); MEAN CORPUSCULAR HGB CONC 31.8 g/dl (32.0-36.5); MEAN CORPUSCULAR VOLUME 94.6 fl (80.0-96.0); MONO # 0.5 10^3/uL (0.0-0.8); MONO % 13.9 % (2.0-8.0); NEUTROPHILS # 1.8 10^3/uL (1.5-8.5); NEUTROPHILS % 55.2 % (36.0-66.0); PLATELET COUNT, AUTOMATED 152 10^3/uL (150-450); RED BLOOD COUNT 3.55 10^6/uL (4.30-6.10); WHITE BLOOD COUNT 3.3 10^3/uL (4.0-10.0)
[2024-01-18 10:05] LABS: CALCIUM LEVEL 8.5 MG/DL (8.3-10.6); CREATININE FOR GFR 1.46 MG/DL (0.70-1.30); GLOMERULAR FILTRATION RATE 48.4 (>35); POTASSIUM SERUM 4.2 MMOL/L (3.5-5.1)
[2024-01-19 05:32] VITALS: BP 149/73; TEMP 98.1; O2SAT 97
[2024-01-20 05:48] VITALS: BP 151/62; TEMP 98.1; O2SAT 96
[2024-01-21 05:12] VITALS: BP 141/53; TEMP 97.9; O2SAT 95
[2024-01-22 06:00] VITALS: BP 136/61; TEMP 97.7; O2SAT 98
[2024-01-23 06:35] VITALS: BP 143/71; TEMP 97.9; O2SAT 97
[2024-01-24 06:44] VITALS: BP 132/62; TEMP 97.9; O2SAT 97
[2024-01-24 08:30] VITALS: BP 128/54; TEMP 97.7; O2SAT 99
[2024-01-24 14:00] VITALS: BP 136/62; TEMP 98.1
[2024-01-25 06:17] VITALS: BP 145/70; TEMP 97.5; O2SAT 97
[2024-01-26 06:56] VITALS: BP 138/67; TEMP 96.9; O2SAT 96
[2024-01-27 06:08] VITALS: BP 135/57; TEMP 97.9; O2SAT 97
[2024-01-28 06:04] VITALS: BP 133/59; TEMP 97.7; O2SAT 95
[2024-01-29 06:25] VITALS: BP 143/69; TEMP 97.9; O2SAT 95
[2024-01-29] MEDS ORDERED: TUBERCULIN PPD 5 UNITS/0.1 ML ID ONE (14:15)
[2024-01-29] MEDS: TUBERCULIN PPD 5 UNITS/0.1 ML ID ONE (16:58)
[2024-01-30 06:29] VITALS: BP 126/59; TEMP 98.1; O2SAT 96
[2024-01-30 08:32] VITALS: BP 134/59
[2024-01-30 14:00] VITALS: BP 122/62
[2024-01-31 06:37] VITALS: BP 133/61; TEMP 97.7; O2SAT 95
[2024-01-31] MEDS ORDERED: PPD DOCUMENTATION ENTRY MISC XX SCH (10:00)
[2024-01-31] MEDS: PPD DOCUMENTATION ENTRY MISC XX ONE (17:41)
[2024-02-01 06:14] VITALS: BP 139/61; TEMP 97.9; O2SAT 95
[2024-02-01 08:49] VITALS: BP 133/59
[2024-02-01 14:39] VITALS: BP 135/58
[2024-02-02 06:11] VITALS: BP 141/69; TEMP 97.9; O2SAT 96
[2024-02-03 06:07] VITALS: BP 140/69; TEMP 97.7; O2SAT 95
[2024-02-04 06:02] VITALS: BP 127/59; TEMP 98.1; O2SAT 96
[2024-02-04] MEDS: MIRALAX *UNIT DOSE* 17GM PACKET PO PRN (06:08)
[2024-02-05 06:09] VITALS: BP 144/67; TEMP 97; O2SAT 95
[2024-02-06 06:14] VITALS: BP 133/65; TEMP 98.2; O2SAT 96
[2024-02-07 06:23] VITALS: BP 114/62; TEMP 97; O2SAT 94
[2024-02-08 06:11] VITALS: BP 122/60; TEMP 97.5; O2SAT 96
[2024-02-09 06:55] VITALS: BP 148/72; TEMP 97.7; O2SAT 95
[2024-02-10 06:13] VITALS: BP 141/66; TEMP 97.7; O2SAT 95
[2024-02-11 06:10] VITALS: BP 148/70; TEMP 97.7; O2SAT 97
[2024-02-11 09:00] VITALS: BP 115/58
[2024-02-11] MEDS ORDERED: HYDR50TA46 PO (09:17)
[2024-02-11] MEDS ORDERED: AMLO1TAB25 PO (09:17)
== END 2024-02-11 11:00 | DRG 884 ==
LOC: EDBD 08:20 → M ED 08:20 → EDSEX 08:20 → M ED INP 14:03 → M MS5PR 21:20 → M PCU 11-29 18:39 → M MS5PR 12-02 17:45
PROVIDERS: ADMIT Family Medicine; ATTEND Internal Medicine
DX: F03.90 Unspecified dementia, unspecified severity, without behavioral disturbance, psychotic disturbance, mood disturbance, and anxiety (principal); I26.99 Other pulmonary embolism without acute cor pulmonale; I82.411 Acute embolism and thrombosis of right femoral vein; I82.442 Acute embolism and thrombosis of left tibial vein; I12.9 Hypertensive chronic kidney disease with stage 1 through stage 4 chronic kidney disease, or unspecified chronic kidney disease; N18.31 Chronic kidney disease, stage 3a; S30.0XXA Contusion of lower back and pelvis, initial encounter; S10.93XA Contusion of unspecified part of neck, initial encounter; S00.93XA Contusion of unspecified part of head, initial encounter; W01.0XXA Fall on same level from slipping, tripping and stumbling without subsequent striking against object, initial encounter; Y92.230 Patient room in hospital as the place of occurrence of the external cause; Z66 Do not resuscitate; J44.9 Chronic obstructive pulmonary disease, unspecified; K21.9 Gastro-esophageal reflux disease without esophagitis; I27.81 Cor pulmonale (chronic); N40.0 Benign prostatic hyperplasia without lower urinary tract symptoms; Z74.1 Need for assistance with personal care; G47.00 Insomnia, unspecified; R26.89 Other abnormalities of gait and mobility; R51.9 Headache, unspecified; M47.897 Other spondylosis, lumbosacral region; I67.1 Cerebral aneurysm, nonruptured; M85.88 Other specified disorders of bone density and structure, other site; F32.A Depression, unspecified; R53.1 Weakness; Z86.16 Personal history of COVID-19; Z86.73 Personal history of transient ischemic attack (TIA), and cerebral infarction without residual deficits; Z79.899 Other long term (current) drug therapy; Z88.2 Allergy status to sulfonamides; Z91.51 Personal history of suicidal behavior; I44.1 Atrioventricular block, second degree; K59.00 Constipation, unspecified

== ENCOUNTER → 2024-02-19 | Outpatient (REF) | payer MEDICARE, MEDICAID, OTHER, SELFPAY ==
[~2024-02-19] MED LIST changes: +HYDR50TA46 PO; +LEXA5TAB13; +TORS10TA3 PO
[2024-02-19 09:28] LABS: HEMATOCRIT 33.5 % (42.0-52.0); HEMOGLOBIN 10.9 g/dl (13.5-17.5); MEAN CORPUSCULAR HEMOGLOBIN 30.1 pg (27.0-33.0); MEAN CORPUSCULAR HGB CONC 32.5 g/dl (32.0-36.5); MEAN CORPUSCULAR VOLUME 92.5 fl (80.0-96.0); PLATELET COUNT, AUTOMATED 154 10^3/uL (150-450); RED BLOOD COUNT 3.62 10^6/uL (4.30-6.10); WHITE BLOOD COUNT 3.9 10^3/uL (4.0-10.0)
[2024-02-19 10:19] LABS: CALCIUM LEVEL 7.9 MG/DL (8.3-10.6); CREATININE FOR GFR 1.74 MG/DL (0.70-1.30); GLOMERULAR FILTRATION RATE 39.5 (>35); POTASSIUM SERUM 4.2 MMOL/L (3.5-5.1)
== END ==
LOC: SKLAB3 02-18 14:19
PROVIDERS: ATTEND Nurse Practitioner Family
DX: I10 Essential (primary) hypertension (principal)

== ENCOUNTER → 2024-02-25 | Outpatient (REF) | payer MEDICARE, MEDICAID, OTHER, SELFPAY ==
[2024-02-25 09:39] LABS: HEMATOCRIT 33.3 % (42.0-52.0); HEMOGLOBIN 10.8 g/dl (13.5-17.5); MEAN CORPUSCULAR HEMOGLOBIN 30.3 pg (27.0-33.0); MEAN CORPUSCULAR HGB CONC 32.4 g/dl (32.0-36.5); MEAN CORPUSCULAR VOLUME 93.3 fl (80.0-96.0); PLATELET COUNT, AUTOMATED 153 10^3/uL (150-450); RED BLOOD COUNT 3.57 10^6/uL (4.30-6.10); WHITE BLOOD COUNT 3.3 10^3/uL (4.0-10.0)
[2024-02-25 10:11] LABS: CALCIUM LEVEL 8.5 MG/DL (8.3-10.6); CREATININE FOR GFR 1.64 MG/DL (0.70-1.30); GLOMERULAR FILTRATION RATE 42.3 (>35); POTASSIUM SERUM 4.4 MMOL/L (3.5-5.1)
== END ==
LOC: SKLAB3 07:00
PROVIDERS: ATTEND Nurse Practitioner Family
DX: N18.9 Chronic kidney disease, unspecified (principal); I50.9 Heart failure, unspecified

== ENCOUNTER → 2024-02-27 | Outpatient (REF) | payer MEDICARE, MEDICAID, OTHER, SELFPAY ==
[2024-02-27 12:10] LABS: CALCIUM LEVEL 8.4 MG/DL (8.3-10.6); CREATININE FOR GFR 1.62 MG/DL (0.70-1.30); GLOMERULAR FILTRATION RATE 42.9 (>35); POTASSIUM SERUM 4.3 MMOL/L (3.5-5.1)
== END ==
LOC: SKLAB3 10:55
PROVIDERS: ATTEND Internal Medicine
DX: I50.9 Heart failure, unspecified (principal)

== ENCOUNTER → 2024-03-03 | Outpatient (REF) | payer MEDICARE, MEDICAID, OTHER, SELFPAY ==
[2024-03-03 09:56] LABS: HEMATOCRIT 32.9 % (42.0-52.0); HEMOGLOBIN 10.6 g/dl (13.5-17.5); MEAN CORPUSCULAR HEMOGLOBIN 30.1 pg (27.0-33.0); MEAN CORPUSCULAR HGB CONC 32.2 g/dl (32.0-36.5); MEAN CORPUSCULAR VOLUME 93.5 fl (80.0-96.0); PLATELET COUNT, AUTOMATED 173 10^3/uL (150-450); RED BLOOD COUNT 3.52 10^6/uL (4.30-6.10); WHITE BLOOD COUNT 3.4 10^3/uL (4.0-10.0)
[2024-03-03 10:24] LABS: CALCIUM LEVEL 8.2 MG/DL (8.3-10.6); CREATININE FOR GFR 1.51 MG/DL (0.70-1.30); GLOMERULAR FILTRATION RATE 46.6 (>35); POTASSIUM SERUM 4.1 MMOL/L (3.5-5.1)
== END ==
LOC: SKLAB3 07:00
PROVIDERS: ATTEND Nurse Practitioner Family
DX: N18.9 Chronic kidney disease, unspecified (principal)

== ENCOUNTER → 2024-07-01 | Outpatient (REF) | payer MEDICARE, MEDICAID, OTHER, SELFPAY | LOC: SKLAB3 15:13 | PROVIDERS: ATTEND Internal Medicine | DX: Z53.8 Procedure and treatment not carried out for other reasons (principal) ==

== ENCOUNTER → 2024-07-01 | Outpatient (REF) | payer MEDICARE, MEDICAID, OTHER, SELFPAY ==
[2024-07-01 12:28] LABS: BASO % 0.5 % (0.0-1.0); EOS # 0.3 10^3/uL (0.0-0.5); EOS % 6.4 % (0.0-3.0); HEMATOCRIT 35.6 % (42.0-52.0); HEMOGLOBIN 11.6 g/dl (13.5-17.5); LYMPH # 0.8 10^3/uL (1.5-5.0); MEAN CORPUSCULAR HEMOGLOBIN 30.5 pg (27.0-33.0); MEAN CORPUSCULAR HGB CONC 32.6 g/dl (32.0-36.5); MEAN CORPUSCULAR VOLUME 93.7 fl (80.0-96.0); MONO # 0.4 10^3/uL (0.0-0.8); MONO % 9.7 % (2.0-8.0); NEUTROPHILS # 2.5 10^3/uL (1.5-8.5); NEUTROPHILS % 63.4 % (36.0-66.0); PLATELET COUNT, AUTOMATED 147 10^3/uL (150-450); WHITE BLOOD COUNT 3.9 10^3/uL (4.0-10.0)
[2024-07-01 13:04] LABS: CALCIUM LEVEL 8.9 MG/DL (8.3-10.6); CREATININE FOR GFR 1.52 MG/DL (0.70-1.30); GLOMERULAR FILTRATION RATE 46.2 (>35); POTASSIUM SERUM 4.5 MMOL/L (3.5-5.1)
== END ==
LOC: SKLAB3 07:45
PROVIDERS: ATTEND Internal Medicine
DX: R31.9 Hematuria, unspecified (principal)

== ENCOUNTER → 2024-07-15 | Outpatient (REF) | payer MEDICARE, MEDICAID, OTHER, SELFPAY ==
[2024-07-15 13:31] LABS: BASO % 0.8 % (0.0-1.0); EOS # 0.3 10^3/uL (0.0-0.5); HEMATOCRIT 35.1 % (42.0-52.0); HEMOGLOBIN 11.6 g/dl (13.5-17.5); LYMPH # 0.6 10^3/uL (1.5-5.0); MEAN CORPUSCULAR HEMOGLOBIN 30.8 pg (27.0-33.0); MEAN CORPUSCULAR VOLUME 93.1 fl (80.0-96.0); MONO # 0.6 10^3/uL (0.0-0.8); MONO % 15.5 % (2.0-8.0); NEUTROPHILS # 2.1 10^3/uL (1.5-8.5); NEUTROPHILS % 58.4 % (36.0-66.0); PLATELET COUNT, AUTOMATED 143 10^3/uL (150-450); RED BLOOD COUNT 3.77 10^6/uL (4.30-6.10); WHITE BLOOD COUNT 3.6 10^3/uL (4.0-10.0)
[2024-07-15 14:05] LABS: BILIRUBIN,TOTAL 0.5 MG/DL (0.3-1.2); CALCIUM LEVEL 8.3 MG/DL (8.3-10.6); CREATININE FOR GFR 1.51 MG/DL (0.70-1.30); GLOMERULAR FILTRATION RATE 46.6 (>35); POTASSIUM SERUM 4.5 MMOL/L (3.5-5.1); TOTAL PROTEIN 6.1 G/DL (5.7-8.2)
== END ==
LOC: SKLAB3 12:34
PROVIDERS: ATTEND Internal Medicine
DX: R05.9 Cough, unspecified (principal); I51.7 Cardiomegaly; I70.0 Atherosclerosis of aorta; R91.8 Other nonspecific abnormal finding of lung field

== ENCOUNTER → 2024-07-23 | Outpatient (REF) | payer MEDICARE, MEDICAID, OTHER, SELFPAY ==
[2024-07-23 09:11] LABS: CALCIUM LEVEL 8.2 MG/DL (8.3-10.6); CREATININE FOR GFR 1.83 MG/DL (0.70-1.30); GLOMERULAR FILTRATION RATE 37.3 (>35); POTASSIUM SERUM 4.1 MMOL/L (3.5-5.1)
== END ==
LOC: SKLAB3 07:00
PROVIDERS: ATTEND Internal Medicine
DX: I10 Essential (primary) hypertension (principal)

== ENCOUNTER → 2024-09-15 | Outpatient (REF) | payer MEDICARE, MEDICAID, OTHER, SELFPAY ==
[~2024-09-15] MED LIST changes: +BUDE180A2 INH; -BUDE180INH INH
[2024-09-15 08:46] LABS: HEMATOCRIT 37.4 % (42.0-52.0); HEMOGLOBIN 11.9 g/dl (13.5-17.5); MEAN CORPUSCULAR HEMOGLOBIN 29.5 pg (27.0-33.0); MEAN CORPUSCULAR HGB CONC 31.8 g/dl (32.0-36.5); MEAN CORPUSCULAR VOLUME 92.8 fl (80.0-96.0); PLATELET COUNT, AUTOMATED 143 10^3/uL (150-450); RED BLOOD COUNT 4.03 10^6/uL (4.30-6.10); WHITE BLOOD COUNT 4.3 10^3/uL (4.0-10.0)
[2024-09-15 09:12] LABS: BILIRUBIN,TOTAL 0.5 MG/DL (0.3-1.2); CALCIUM LEVEL 8.9 MG/DL (8.3-10.6); CREATININE FOR GFR 1.4 MG/DL (0.70-1.30); GLOMERULAR FILTRATION RATE 50.8 (>35); POTASSIUM SERUM 4.4 MMOL/L (3.5-5.1); TOTAL PROTEIN 6.8 G/DL (5.7-8.2)
== END ==
LOC: SKLAB3 07:00
PROVIDERS: ATTEND Internal Medicine
DX: I10 Essential (primary) hypertension (principal)

== ENCOUNTER 2024-09-29 13:54 | Emergency (ER) | payer MEDICARE, OTHER, MEDICAID ==
[~2024-09-29] VITALS: Ht 180.3 cm; Wt 72.0 kg
[2024-09-29] MEDS: methylPREDNISolone 125MG 2ML VIAL IV ONE (14:26)
[2024-09-29] MEDS: IPRATROPIUM 0.5MG/ALBUTEROL 2.5MG INH SOL UD 3ML (DUONEB) NEB PRN (14:29)
[2024-09-29 14:43] LABS: VENOUS BASE EXCESS -2.2 (-2.0-2.0); VENOUS HCO3 21.8 MMOL/L (23.0-27.0); VENOUS O2 SATURATION 90.1 % (60.0-80.0); VENOUS PARTIAL PRESSURE O2 56.5 mmHg (30.0-50.0); VENOUS PH 7.412 UNITS (7.330-7.430); VENOUS STANDARD HCO3 22.5 MMOL/L; VENOUS TOTAL CO2 22.9 MMOL/L (24.0-28.0)
[2024-09-29 14:48] LABS: BASO % 0.9 % (0.0-1.0); EOS # 0.3 10^3/uL (0.0-0.5); EOS % 7.3 % (0.0-3.0); HEMATOCRIT 39.8 % (42.0-52.0); HEMOGLOBIN 13.3 g/dl (13.5-17.5); LYMPH # 0.8 10^3/uL (1.5-5.0); LYMPH % 16.4 % (24.0-44.0); MEAN CORPUSCULAR HEMOGLOBIN 30.5 pg (27.0-33.0); MEAN CORPUSCULAR HGB CONC 33.4 g/dl (32.0-36.5); MEAN CORPUSCULAR VOLUME 91.3 fl (80.0-96.0); MONO # 0.6 10^3/uL (0.0-0.8); MONO % 12.3 % (2.0-8.0); NEUTROPHILS # 2.9 10^3/uL (1.5-8.5); NEUTROPHILS % 62.7 % (36.0-66.0); PLATELET COUNT, AUTOMATED 156 10^3/uL (150-450); RED BLOOD COUNT 4.36 10^6/uL (4.30-6.10); WHITE BLOOD COUNT 4.6 10^3/uL (4.0-10.0)
[2024-09-29 15:04] LABS: INR 1.02; PARTIAL THROMBOPLASTIN TIME 28.7 SECONDS (24.8-34.2); PROTHROMBIN TIME 13.7 SECONDS (12.5-14.5)
[2024-09-29 15:14] LABS: CK-MB VALUE MASS 1.1 NG/ML (<3.6)
[2024-09-29 15:17] LABS: MB/CK RELATIVE INDEX 1.64 (< OR =4)
[2024-09-29 15:18] LABS: ALBUMIN 3.3 G/DL (3.2-5.2); BILIRUBIN,DIRECT 0.2 MG/DL (<0.4); BILIRUBIN,TOTAL 0.5 MG/DL (0.3-1.2); CALCIUM LEVEL 9.1 MG/DL (8.3-10.6); CREATININE FOR GFR 1.37 MG/DL (0.70-1.30); GLOMERULAR FILTRATION RATE 52.1 (>35); POTASSIUM SERUM 4.4 MMOL/L (3.5-5.1); THYROID STIMULATING HORMONE 1.713 uIU/ML (0.55-4.78); TOTAL PROTEIN 6.9 G/DL (5.7-8.2)
[2024-09-29] MEDS ORDERED: ISOVUE-370 76% 100ML VIAL As Ordered ONE (15:31)
[2024-09-29 16:07] LABS: MB/CK RELATIVE INDEX 1.63 (< OR =4)
[2024-09-29 16:32] VITALS: O2SAT 97
[2024-09-29 18:13] LABS: CK-MB VALUE MASS < 1.0 NG/ML (<3.6)
[2024-09-29 18:14] LABS: CPK CREATINE PHOSPHOKINASE 61 U/L (46-171); MB/CK RELATIVE INDEX 1.63 (< OR =4)
[2024-09-29 19:20] VITALS: BP 153/73; TEMP 97.8; O2SAT 97
== END 2024-09-29 19:25 | disposition home or self-care (01) ==
LOC: M ED 13:54 → EDBD 13:54 → M ED 19:25
DX: R05.9 Cough, unspecified (principal); I31.39 Other pericardial effusion (noninflammatory); I44.1 Atrioventricular block, second degree; I10 Essential (primary) hypertension; F03.90 Unspecified dementia, unspecified severity, without behavioral disturbance, psychotic disturbance, mood disturbance, and anxiety; K21.9 Gastro-esophageal reflux disease without esophagitis; N18.30 Chronic kidney disease, stage 3 unspecified; N40.0 Benign prostatic hyperplasia without lower urinary tract symptoms; F32.A Depression, unspecified; Z86.711 Personal history of pulmonary embolism; Z86.718 Personal history of other venous thrombosis and embolism; Z79.899 Other long term (current) drug therapy; Z88.2 Allergy status to sulfonamides
CPT/HCPCS: 71045; 71275; 80048; 80076; 82550; 82553; 82803; 83880; 84443; 84484; 85025; 85610; 85730; 87486; 87581; 87633; 87798; 93005; 93041; 94640; 94760; 96374; 99285; J2919; Q9967

== ENCOUNTER → 2024-11-25 | Outpatient (REF) | payer MEDICARE, OTHER, MEDICAID ==
[2024-11-25 10:37] LABS: HEMATOCRIT 36.5 % (42.0-52.0); MEAN CORPUSCULAR HEMOGLOBIN 30.3 pg (27.0-33.0); MEAN CORPUSCULAR HGB CONC 32.9 g/dl (32.0-36.5); MEAN CORPUSCULAR VOLUME 92.2 fl (80.0-96.0); PLATELET COUNT, AUTOMATED 150 10^3/uL (150-450); RED BLOOD COUNT 3.96 10^6/uL (4.30-6.10); WHITE BLOOD COUNT 4.6 10^3/uL (4.0-10.0)
[2024-11-25 11:01] LABS: CALCIUM LEVEL 8.5 MG/DL (8.3-10.6); CREATININE FOR GFR 1.41 MG/DL (0.70-1.30); GLOMERULAR FILTRATION RATE 50.4 (>35); POTASSIUM SERUM 4.6 MMOL/L (3.5-5.1)
== END ==
LOC: SKLAB3 09:28
PROVIDERS: ATTEND Internal Medicine
DX: K62.5 Hemorrhage of anus and rectum (principal)

== ENCOUNTER → 2024-11-26 | Outpatient (REF) | payer MEDICARE, OTHER, MEDICAID | LOC: SKLAB3 07:56 | PROVIDERS: ATTEND Internal Medicine | DX: R06.2 Wheezing (principal) ==

== ENCOUNTER → 2024-11-30 | Outpatient (REF) | payer MEDICARE, OTHER, MEDICAID ==
[2024-11-30 07:46] LABS: HEMATOCRIT 40.5 % (42.0-52.0); LYMPH # 0.3 10^3/uL (1.5-5.0); LYMPH % 6.6 % (24.0-44.0); MEAN CORPUSCULAR HEMOGLOBIN 29.7 pg (27.0-33.0); MEAN CORPUSCULAR HGB CONC 32.1 g/dl (32.0-36.5); MEAN CORPUSCULAR VOLUME 92.7 fl (80.0-96.0); MONO # 0.2 10^3/uL (0.0-0.8); MONO % 4.3 % (2.0-8.0); NEUTROPHILS # 3.5 10^3/uL (1.5-8.5); NEUTROPHILS % 88.8 % (36.0-66.0); PLATELET COUNT, AUTOMATED 181 10^3/uL (150-450); RED BLOOD COUNT 4.37 10^6/uL (4.30-6.10); WHITE BLOOD COUNT 3.9 10^3/uL (4.0-10.0)
[2024-11-30 08:16] LABS: CALCIUM LEVEL 8.3 MG/DL (8.3-10.6); CREATININE FOR GFR 1.62 MG/DL (0.70-1.30); GLOMERULAR FILTRATION RATE 42.9 (>35)
== END ==
LOC: SKLAB3 06:16
PROVIDERS: ATTEND Nurse Practitioner Family
DX: J44.1 Chronic obstructive pulmonary disease with (acute) exacerbation (principal)

== ENCOUNTER → 2024-12-15 | Outpatient (REF) | payer MEDICARE, OTHER, MEDICAID ==
[2024-12-15 17:43] LABS: HEMATOCRIT 33.4 % (42.0-52.0); HEMOGLOBIN 10.8 g/dl (13.5-17.5); MEAN CORPUSCULAR HEMOGLOBIN 29.3 pg (27.0-33.0); MEAN CORPUSCULAR HGB CONC 32.3 g/dl (32.0-36.5); MEAN CORPUSCULAR VOLUME 90.8 fl (80.0-96.0); PLATELET COUNT, AUTOMATED 115 10^3/uL (150-450); RED BLOOD COUNT 3.68 10^6/uL (4.30-6.10); WHITE BLOOD COUNT 4.8 10^3/uL (4.0-10.0)
[2024-12-15 18:09] LABS: ALBUMIN 2.7 G/DL (3.2-5.2); BILIRUBIN,TOTAL 0.6 MG/DL (0.3-1.2); CALCIUM LEVEL 7.9 MG/DL (8.3-10.6); CREATININE FOR GFR 1.38 MG/DL (0.70-1.30); GLOMERULAR FILTRATION RATE 51.6 (>35); MAGNESIUM LEVEL 1.9 MG/DL (1.8-2.4); POTASSIUM SERUM 4.4 MMOL/L (3.5-5.1); TOTAL PROTEIN 5.7 G/DL (5.7-8.2)
== END ==
LOC: SKLAB3 16:19
PROVIDERS: ATTEND Internal Medicine
DX: J90 Pleural effusion, not elsewhere classified (principal); J98.11 Atelectasis; R06.02 Shortness of breath